=== PATIENT | female | born 1945 | race Hispanic/Latino ===

== ENCOUNTER 2017-10-25 17:11 | Inpatient (IN) | payer OTHER, MEDICARE ==
[~2017-10-25] VITALS: Ht 144.8 cm; Wt 123.5 kg
[~2017-10-25 17:11] MED LIST: ATOR10TA69 PO; LEVO150T11 PO; LEVO5TAB13 PO; PANT40TA25 PO; VALS160T28 PO
[2017-10-25] MEDS ORDERED: IPRATROPIUM/ALBUTEROL SULFATE 3 ML SOLUTION IH ONE (17:25)
[2017-10-25] MEDS ORDERED: NITROGLYCERIN 1GM/1 INCH PACKET TD ONE (17:39)
[2017-10-25 17:40] LABS: BASOPHILS % (AUTO) 0.3 % (0.0-5.0); EOSINOPHILS % (AUTO) 1.6 % (0.0-8.0); HEMATOCRIT 39.6 % (36-48); LYMPHOCYTES % (AUTO) 12.3 % (21.0-51.0); MEAN CORPUSCULAR HEMOGLOBIN 31.8 pg (27.0-33.0); MEAN CORPUSCULAR VOLUME 96.2 fL (79-99); MONOCYTES % (AUTO) 4.8 % (3.0-13.0); PLATELET COUNT (AUTO) 321 K/uL (130-400); RED BLOOD CELL COUNT(AUTO) 4.12 MIL/uL (4.00-5.50); WHITE BLOOD COUNT (AUTO) 13.7 K/uL (4.8-10.8)
[2017-10-25 17:55] LABS: CARBON DIOXIDE 30 mmol/L (21-32); CHLORIDE 102 mmol/L (101-111); CREATININE 1.1 mg/dL (0.5-1.5); GLOMERULAR FILTR. RATE CALC 52 mL/min (>60); GLUCOSE,RANDOM 114 mg/dL (70-105); POTASSIUM 3.8 mmol/L (3.5-5.1); SODIUM SERUM 140 mmol/L (136-145); UREA NITROGEN, BLOOD 18 mg/dL (7-18)
[2017-10-25 18:09] LABS: ALANINE AMINOTRANSFERASE 47 U/L (12-78); ALBUMIN 3.2 g/dL (3.5-5.0); ASPARTATE AMINOTRANSFERASE 28 U/L (10-37); BILIRUBIN,TOTAL 0.3 mg/dL (0.2-1.0); CREATINE KINASE MB < 0.5 ng/mL (0.5-3.6); CREATINE KINASE, TOTAL 28 U/L (21-232); TOTAL PROTEIN, SERUM 7.1 g/dL (6.0-8.3)
[2017-10-25 18:10] LABS: B-TYPE NATRIURETIC PEPTIDE 43 pg/mL (0-100)
[2017-10-25] MEDS ORDERED: MAG HYDROX/AL HYDROX/SIMETH ES 30 ML SUSP UDCUP ONE (18:30)
[2017-10-25] MEDS ORDERED: ACETAMINOPHEN EXTRA STRENGTH 500 MG TABLET ONE (18:38)
[2017-10-25 19:26] LABS: APPEARANCE,URINE Clear (CLEAR); BILIRUBIN,URINE Negative (NEGATIVE); COLOR,URINE Yellow (YELLOW); GLUCOSE, URINE (UA) Negative (NEGATIVE); KETONES,URINE Negative (NEGATIVE); LEUKOCYTE ESTERASE ,URINE Trace (NEGATIVE); NITRATE,URINE Negative (NEGATIVE); OCCULT BLOOD,URINE Negative (NEGATIVE); PROTEIN,URINE Negative (NEGATIVE); UROBILINOGEN,URINE 0.2 mg/dL (0.2-1.0)
[2017-10-25 19:53] LABS: BACTERIA,URINE Rare /HPF (None Seen); RBC,URINE 0-1 /HPF (0-1); SQUAMOUS EPITHELIAL CELL,UR Rare /LPF (0-2)
[2017-10-25 19:54] LABS: TRANSITIONAL EPI CELLS,URINE Rare /LPF (None Seen)
[2017-10-25] MEDS ORDERED: ENOXAPARIN SODIUM 120 MG/0.8ML SQ SCH (21:43)
[2017-10-25] MEDS ORDERED: KETOROLAC TROMETHAMINE 15MG/ML ONE (21:47)
[2017-10-26] MEDS: IPRATROPIUM/ALBUTEROL SULFATE 3 ML SOLUTION IH SCH ×4 (00:17→18:56)
[2017-10-26 05:30] LABS: BASOPHILS % (AUTO) 0.4 % (0.0-5.0); EOSINOPHILS % (AUTO) 0.8 % (0.0-8.0); HEMATOCRIT 36.4 % (36-48); LYMPHOCYTES % (AUTO) 12.1 % (21.0-51.0); MEAN CORPUSCULAR HEMOGLOBIN 32.1 pg (27.0-33.0); MEAN CORPUSCULAR HGB CONC 33.5 g/dL (32.0-36.0); MONOCYTES % (AUTO) 5.3 % (3.0-13.0); NEUTROPHILS % (AUTO) 81.4 % (40.0-77.0); PLATELET COUNT (AUTO) 293 K/uL (130-400); RED BLOOD CELL COUNT(AUTO) 3.79 MIL/uL (4.00-5.50); RED CELL DISTRIBUTION WIDTH 13.9 % (11.0-15.5); WHITE BLOOD COUNT (AUTO) 11.9 K/uL (4.8-10.8)
[2017-10-26 05:36] LABS: CREATININE 0.8 mg/dL (0.5-1.5); POTASSIUM 4.5 mmol/L (3.5-5.1)
[2017-10-26 05:42] LABS: ALBUMIN 2.9 g/dL (3.5-5.0); BILIRUBIN,TOTAL 0.3 mg/dL (0.2-1.0); TOTAL PROTEIN, SERUM 6.6 g/dL (6.0-8.3)
[2017-10-26 05:51] LABS: CREATINE KINASE MB < 0.5 ng/mL (0.5-3.6); CREATINE KINASE, TOTAL 28 U/L (21-232); MYOGLOBIN 20 ng/mL (10-92); TROPONIN I < 0.04 ng/mL (0.00-0.06)
[2017-10-26] MEDS ORDERED: IPRATROPIUM/ALBUTEROL SULFATE 3 ML SOLUTION IH ONE ×2 (05:57→10:56)
[2017-10-26] MEDS: CLOPIDOGREL BISULFATE 75 MG TAB PO SCH (09:00)
[2017-10-26] MEDS ORDERED: ENOXAPARIN SODIUM 60 MG/0.6 ML SQ ONE (09:15)
[2017-10-26] MEDS ORDERED: CLOPIDOGREL BISULFATE 75 MG TAB ONE (09:16)
[2017-10-26 11:30] VITALS: BP 166/74
[2017-10-26] MEDS ORDERED: KETOROLAC TROMETHAMINE 30MG/ML IV PRN (12:00)
[2017-10-26] MEDS ORDERED: ACETAMINOPHEN 325 MG TAB PO PRN (12:00)
[2017-10-26 12:18] LABS: CREATINE KINASE MB < 0.5 ng/mL (0.5-3.6); CREATINE KINASE, TOTAL 27 U/L (21-232); MYOGLOBIN 24 ng/mL (10-92); TROPONIN I < 0.04 ng/mL (0.00-0.06)
[2017-10-26] MEDS ORDERED: ALBU18HF7 IH (12:38)
[2017-10-26] MEDS ORDERED: SODI30SP3 NS (12:38)
[2017-10-26] MEDS ORDERED: FLUT1BLS IH (12:38)
[2017-10-26] MEDS ORDERED: AZITHROMYCIN 500MG+NS 250ML 250 ML IV SCH (14:15)
[2017-10-26] MEDS ORDERED: CEFTRIAXONE 1GM/D5W 50ML 50 ML IV SCH (14:15)
[2017-10-26] MEDS ORDERED: SODIUM CHLORIDE 45 ML SPRY NS PRN (14:15)
[2017-10-26] MEDS ORDERED: CEFTRIAXONE SODIUM 1 GM IVP SCH (15:30)
[2017-10-26 16:00] VITALS: BP 122/77
[2017-10-26 18:23] LABS: CREATINE KINASE MB < 0.5 ng/mL (0.5-3.6); CREATINE KINASE, TOTAL 28 U/L (21-232); MYOGLOBIN 20 ng/mL (10-92); TROPONIN I < 0.04 ng/mL (0.00-0.06)
[2017-10-26] MEDS: BUDESONIDE 0.5 MG/2 ML INH IH SCH (19:10)
[2017-10-26 20:00] VITALS: BP 158/74
[2017-10-26] MEDS: METHYLPREDNISOLONE SOD SUCC 125MG/2ML VIAL IVP SCH (20:46)
[2017-10-26] MEDS: ATORVASTATIN CALCIUM 10 MG TABLET PO SCH (20:46)
[2017-10-26] MEDS: CEFEPIME HCL 1 GM VIAL IVP SCH (20:47)
[2017-10-26] MEDS ORDERED: CEFEPIME 1GM+NS 50ML 50 ML IV SCH (21:00)
[2017-10-26] MEDS ORDERED: FLUTICASONE/VILANTEROL 1 EACH BLST.W.DEV IH SCH (21:00)
[2017-10-27] VITALS: BP 173/75
[2017-10-27] MEDS: IPRATROPIUM/ALBUTEROL SULFATE 3 ML SOLUTION IH SCH ×4 (00:22→19:36)
[2017-10-27 04:00] VITALS: BP 159/79
[2017-10-27 04:27] LABS: BASOPHILS % (AUTO) 0.1 % (0.0-5.0); HEMATOCRIT 40.1 % (36-48); LYMPHOCYTES % (AUTO) 3.9 % (21.0-51.0); MEAN CORPUSCULAR HEMOGLOBIN 32.1 pg (27.0-33.0); MEAN CORPUSCULAR HGB CONC 33.3 g/dL (32.0-36.0); MEAN CORPUSCULAR VOLUME 96.4 fL (79-99); MONOCYTES % (AUTO) 0.5 % (3.0-13.0); NEUTROPHILS % (AUTO) 95.5 % (40.0-77.0); PLATELET COUNT (AUTO) 334 K/uL (130-400); RED BLOOD CELL COUNT(AUTO) 4.16 MIL/uL (4.00-5.50); RED CELL DISTRIBUTION WIDTH 13.9 % (11.0-15.5); WHITE BLOOD COUNT (AUTO) 11.2 K/uL (4.8-10.8)
[2017-10-27 04:35] LABS: POTASSIUM 4.1 mmol/L (3.5-5.1)
[2017-10-27] MEDS: BUDESONIDE 0.5 MG/2 ML INH IH SCH ×2 (06:59→19:46)
[2017-10-27 07:00] VITALS: BP 152/71
[2017-10-27] MEDS: CEFEPIME HCL 1 GM VIAL IVP SCH ×2 (08:53→19:38)
[2017-10-27] MEDS: METHYLPREDNISOLONE SOD SUCC 125MG/2ML VIAL IVP SCH ×2 (08:57→19:38)
[2017-10-27] MEDS: ENOXAPARIN SODIUM 120 MG/0.8ML SQ SCH (08:58)
[2017-10-27] MEDS: CLOPIDOGREL BISULFATE 75 MG TAB PO SCH (09:00)
[2017-10-27] MEDS: PANTOPRAZOLE SODIUM 40 MG TABLET.DR PO SCH (09:00)
[2017-10-27] MEDS: LEVOTHYROXINE 150 MCG TABLET PO SCH (09:00)
[2017-10-27] MEDS: LOSARTAN 100 MG TABLET PO SCH ×2 (09:00→11:24)
[2017-10-27] MEDS ORDERED: REGADENOSON 0.4 MG/5 ML PF SYG IVP SCH (10:15)
[2017-10-27 11:00] VITALS: BP 175/89
[2017-10-27 16:00] VITALS: BP 156/76
[2017-10-27] MEDS: ATORVASTATIN CALCIUM 10 MG TABLET PO SCH (19:38)
[2017-10-27 21:24] VITALS: BP 151/78
[2017-10-28] VITALS (7 sets, daily range): BP systolic 120–162; BP diastolic 60–86
[2017-10-28] MEDS: IPRATROPIUM/ALBUTEROL SULFATE 3 ML SOLUTION IH SCH ×4 (01:06→19:28)
[2017-10-28] MEDS: LEVOTHYROXINE 150 MCG TABLET PO SCH (06:54)
[2017-10-28] MEDS: BUDESONIDE 0.5 MG/2 ML INH IH SCH ×2 (06:58→19:40)
[2017-10-28] MEDS: CEFEPIME HCL 1 GM VIAL IVP SCH ×2 (09:50→20:27)
[2017-10-28] MEDS: CLOPIDOGREL BISULFATE 75 MG TAB PO SCH (09:51)
[2017-10-28] MEDS: LOSARTAN 100 MG TABLET PO SCH (09:51)
[2017-10-28] MEDS: METHYLPREDNISOLONE SOD SUCC 125MG/2ML VIAL IVP SCH ×2 (09:51→20:27)
[2017-10-28] MEDS: PANTOPRAZOLE SODIUM 40 MG TABLET.DR PO SCH (09:51)
[2017-10-28] MEDS: ENOXAPARIN SODIUM 120 MG/0.8ML SQ SCH (09:52)
[2017-10-28] MEDS ORDERED: ONDANSETRON HCL 4 MG/2 ML VIAL IVP PRN (11:00)
[2017-10-28] MEDS ORDERED: LACTULOSE 20 GM/30 ML UDCUP PO PRN (11:00)
[2017-10-28] MEDS ORDERED: DOCUSATE SODIUM 100 MG CAP PO PRN (11:00)
[2017-10-28] MEDS: ATORVASTATIN CALCIUM 10 MG TABLET PO SCH (20:28)
[2017-10-29] MEDS: IPRATROPIUM/ALBUTEROL SULFATE 3 ML SOLUTION IH SCH ×2 (00:24→07:33)
[2017-10-29 04:00] VITALS: BP 138/72
[2017-10-29 06:53] LABS: HEMATOCRIT 38.8 % (36-48); MEAN CORPUSCULAR HEMOGLOBIN 31.6 pg (27.0-33.0); MEAN CORPUSCULAR HGB CONC 33.2 g/dL (32.0-36.0); MEAN CORPUSCULAR VOLUME 95.2 fL (79-99); PLATELET COUNT (AUTO) 310 K/uL (130-400); RED BLOOD CELL COUNT(AUTO) 4.08 MIL/uL (4.00-5.50); RED CELL DISTRIBUTION WIDTH 13.8 % (11.0-15.5); WHITE BLOOD COUNT (AUTO) 15.8 K/uL (4.8-10.8)
[2017-10-29 07:05] LABS: CREATININE 0.8 mg/dL (0.5-1.5); POTASSIUM 4.2 mmol/L (3.5-5.1)
[2017-10-29 07:30] VITALS: BP 140/69
[2017-10-29] MEDS: BUDESONIDE 0.5 MG/2 ML INH IH SCH (07:34)
[2017-10-29] MEDS: METHYLPREDNISOLONE SOD SUCC 125MG/2ML VIAL IVP SCH (09:00)
[2017-10-29] MEDS: CEFEPIME HCL 1 GM VIAL IVP SCH (09:00)
[2017-10-29] MEDS: ENOXAPARIN SODIUM 120 MG/0.8ML SQ SCH (09:00)
[2017-10-29] MEDS: PANTOPRAZOLE SODIUM 40 MG TABLET.DR PO SCH (09:07)
[2017-10-29] MEDS: CLOPIDOGREL BISULFATE 75 MG TAB PO SCH (09:07)
[2017-10-29] MEDS: LEVOTHYROXINE 150 MCG TABLET PO SCH (09:07)
[2017-10-29] MEDS: LOSARTAN 100 MG TABLET PO SCH (09:07)
== END 2017-10-29 09:30 | disposition home or self-care (01) | DRG 191 ==
LOC: EDH 17:11 → EDHIP 21:10 → 3DH 10-26 11:15
PROVIDERS: ADMIT Internal Medicine; ATTEND Internal Medicine
DX: J44.1 Chronic obstructive pulmonary disease with (acute) exacerbation (principal); Z68.43 Body mass index [BMI] 50.0-59.9, adult; E66.01 Morbid (severe) obesity due to excess calories; E03.9 Hypothyroidism, unspecified; I10 Essential (primary) hypertension; K21.9 Gastro-esophageal reflux disease without esophagitis; N95.1 Menopausal and female climacteric states; Z90.710 Acquired absence of both cervix and uterus; Z90.49 Acquired absence of other specified parts of digestive tract; Z88.8 Allergy status to other drugs, medicaments and biological substances
CPT/HCPCS: 36415; 71045; 78452; 80048; 80053; 81001; 82550; 82553; 83690; 83874; 83880; 84484; 85025; 85027; 87804; 87880; 93005; 93017; 93306; 94640; 94664; 96374; A4218; A9500; J0456; J0692; J0696; J1650; J1885; J2785; J2930

== ENCOUNTER 2017-12-22 14:58 | Emergency (ER) | payer OTHER, MEDICARE ==
[~2017-12-22 14:58] MED LIST changes: +ALBU18HF7 IH; +FLUT1BLS IH; -LEVO5TAB13 PO; +SODI30SP3 NS
[2017-12-22 15:36] LABS: BASOPHILS % (AUTO) 0.8 % (0.0-5.0); EOSINOPHILS % (AUTO) 2.8 % (0.0-8.0); HEMATOCRIT 39.2 % (36-48); LYMPHOCYTES % (AUTO) 14.8 % (21.0-51.0); MEAN CORPUSCULAR HEMOGLOBIN 32.8 pg (27.0-33.0); MEAN CORPUSCULAR HGB CONC 34.3 g/dL (32.0-36.0); MEAN CORPUSCULAR VOLUME 95.7 fL (79-99); MONOCYTES % (AUTO) 6.5 % (3.0-13.0); NEUTROPHILS % (AUTO) 75.1 % (40.0-77.0); PLATELET COUNT (AUTO) 348 K/uL (130-400); RED CELL DISTRIBUTION WIDTH 14.3 % (11.0-15.5); WHITE BLOOD COUNT (AUTO) 10.5 K/uL (4.8-10.8)
[2017-12-22 15:38] LABS: BILIRUBIN,URINE Negative (NEGATIVE); COLOR,URINE Yellow (YELLOW); GLUCOSE, URINE (UA) Negative (NEGATIVE); KETONES,URINE Negative (NEGATIVE); LEUKOCYTE ESTERASE ,URINE Small (NEGATIVE); NITRATE,URINE Negative (NEGATIVE); OCCULT BLOOD,URINE Negative (NEGATIVE); PROTEIN,URINE Negative (NEGATIVE); UROBILINOGEN,URINE 0.2 mg/dL (0.2-1.0)
[2017-12-22 15:40] LABS: APPEARANCE,URINE CLEAR (CLEAR)
[2017-12-22 15:47] LABS: CREATININE 0.9 mg/dL (0.5-1.5); POTASSIUM 4.7 mmol/L (3.5-5.1)
[2017-12-22 15:51] LABS: ALBUMIN 3.1 g/dL (3.5-5.0); BILIRUBIN,TOTAL 0.5 mg/dL (0.2-1.0); TOTAL PROTEIN, SERUM 6.6 g/dL (6.0-8.3)
[2017-12-22] MEDS ORDERED: IOPAMIDOL-370 75 ML VIAL IV ONE (16:05)
[2017-12-22 16:12] LABS: BACTERIA,URINE Rare /HPF (None Seen); RBC,URINE None Seen /HPF (0-1); RENAL EPITHELIAL CELLS,URINE Rare /LPF (None Seen); SQUAMOUS EPITHELIAL CELL,UR 0-2 /LPF (0-2); TRANSITIONAL EPI CELLS,URINE Few /LPF (None Seen); WBC,URINE 0-1 /HPF (0-1)
[2017-12-22] MEDS ORDERED: HYOSCYAMINE SULFATE 0.125 MG TAB.SUBL SL ONE (18:30)
== END 2017-12-22 18:51 | disposition home or self-care (01) ==
LOC: EDH 14:58
DX: R10.32 Left lower quadrant pain (principal); K21.9 Gastro-esophageal reflux disease without esophagitis; I10 Essential (primary) hypertension; E07.9 Disorder of thyroid, unspecified; Z88.5 Allergy status to narcotic agent; Z88.8 Allergy status to other drugs, medicaments and biological substances; Z90.710 Acquired absence of both cervix and uterus; Z90.49 Acquired absence of other specified parts of digestive tract; Z98.890 Other specified postprocedural states
CPT/HCPCS: 36415; 74178; 80053; 81001; 85025; 99285; Q9967

== ENCOUNTER 2018-03-15 15:15 | Observation (INO) | payer OTHER ==
[~2018-03-15] VITALS: Ht 152.4 cm; Wt 126.6 kg
[~2018-03-15 15:15] MED LIST changes: -VALS160T28 PO; +VALS160T29 PO
[2018-03-15] MEDS ORDERED: DIATR MEGLU/DIATRIZOATE SODIUM 30 ML BOTTLE ONE ×2 (15:46→16:29)
[2018-03-15] MEDS ORDERED: DIPHENHYDRAMINE HCL 25 MG CAPSULE PO PRN (16:00)
[2018-03-15] MEDS ORDERED: ZOLPIDEM TARTRATE 5 MG TAB PO PRN (16:00)
[2018-03-15] MEDS ORDERED: ACETAMINOPHEN 325 MG TAB PO PRN (16:00)
[2018-03-15 16:03] LABS: BASOPHILS % (AUTO) 0.5 % (0.0-5.0); EOSINOPHILS % (AUTO) 2.2 % (0.0-8.0); HEMATOCRIT 38.3 % (36-48); LYMPHOCYTES % (AUTO) 12.8 % (21.0-51.0); MEAN CORPUSCULAR HEMOGLOBIN 33.2 pg (27.0-33.0); MEAN CORPUSCULAR HGB CONC 34.9 g/dL (32.0-36.0); MONOCYTES % (AUTO) 5.7 % (3.0-13.0); NEUTROPHILS % (AUTO) 78.8 % (40.0-77.0); PLATELET COUNT (AUTO) 351 K/uL (130-400); RED BLOOD CELL COUNT(AUTO) 4.03 MIL/uL (4.00-5.50); RED CELL DISTRIBUTION WIDTH 13.8 % (11.0-15.5); WHITE BLOOD COUNT (AUTO) 12.2 K/uL (4.8-10.8)
[2018-03-15 16:10] LABS: CREATININE 0.8 mg/dL (0.5-1.5); POTASSIUM 3.8 mmol/L (3.5-5.1)
[2018-03-15 16:15] LABS: BILIRUBIN,DIRECT 0.1 mg/dL (0.0-0.3); BILIRUBIN,TOTAL 0.3 mg/dL (0.2-1.0); TOTAL PROTEIN, SERUM 6.8 g/dL (6.0-8.3)
[2018-03-15 17:11] LABS: APPEARANCE,URINE Cloudy (CLEAR); BILIRUBIN,URINE Negative (NEGATIVE); COLOR,URINE Yellow (YELLOW); GLUCOSE, URINE (UA) Negative (NEGATIVE); KETONES,URINE Negative (NEGATIVE); LEUKOCYTE ESTERASE ,URINE Moderate (NEGATIVE); NITRATE,URINE Negative (NEGATIVE); OCCULT BLOOD,URINE Negative (NEGATIVE); PROTEIN,URINE Negative (NEGATIVE); UROBILINOGEN,URINE 0.2 mg/dL (0.2-1.0)
[2018-03-15 17:23] LABS: RBC,URINE 0-1 /HPF (0-1)
[2018-03-15 17:24] LABS: BACTERIA,URINE Few /HPF (None Seen); SQUAMOUS EPITHELIAL CELL,UR Few /HPF (0-2)
[2018-03-15] MEDS ORDERED: IOPAMIDOL-370 75 ML VIAL IV ONE (18:26)
[2018-03-15 19:15] VITALS: BP 159/70
[2018-03-15] MEDS ORDERED: FAMO20TA8 PO (20:41)
[2018-03-15] MEDS ORDERED: VALS160T29 PO (20:41)
[2018-03-15] MEDS ORDERED: LEVO125 PO (20:41)
[2018-03-15] MEDS ORDERED: ASPI-555 PO (20:41)
[2018-03-15] MEDS ORDERED: IBUP-2077 PO (20:41)
[2018-03-15] MEDS ORDERED: DIPH25TA20 PO (20:41)
[2018-03-15] MEDS: KETOROLAC TROMETHAMINE 15MG/ML IV PRN (20:47)
[2018-03-15] MEDS: ENOXAPARIN SODIUM 30 MG/0.3 ML SQ SCH (20:47)
[2018-03-15 23:15] VITALS: BP 141/68
[2018-03-16 03:30] VITALS: BP 145/61
[2018-03-16 05:45] LABS: BASOPHILS % (AUTO) 0.5 % (0.0-5.0); EOSINOPHILS % (AUTO) 2.3 % (0.0-8.0); HEMATOCRIT 37.1 % (36-48); LYMPHOCYTES % (AUTO) 16.7 % (21.0-51.0); MEAN CORPUSCULAR HEMOGLOBIN 32.7 pg (27.0-33.0); MEAN CORPUSCULAR HGB CONC 34.3 g/dL (32.0-36.0); MEAN CORPUSCULAR VOLUME 95.4 fL (79-99); MONOCYTES % (AUTO) 5.8 % (3.0-13.0); NEUTROPHILS % (AUTO) 74.7 % (40.0-77.0); PLATELET COUNT (AUTO) 337 K/uL (130-400); RED BLOOD CELL COUNT(AUTO) 3.89 MIL/uL (4.00-5.50); RED CELL DISTRIBUTION WIDTH 13.6 % (11.0-15.5); WHITE BLOOD COUNT (AUTO) 9.8 K/uL (4.8-10.8)
[2018-03-16 06:02] LABS: ALBUMIN 2.7 g/dL (3.5-5.0); BILIRUBIN,DIRECT 0.1 mg/dL (0.0-0.3); BILIRUBIN,TOTAL 0.4 mg/dL (0.2-1.0); CREATININE 0.7 mg/dL (0.5-1.5); POTASSIUM 3.6 mmol/L (3.5-5.1); TOTAL PROTEIN, SERUM 6.2 g/dL (6.0-8.3)
[2018-03-16] MEDS: KETOROLAC TROMETHAMINE 15MG/ML IV PRN (07:11)
[2018-03-16 07:48] VITALS: BP 148/71
[2018-03-16] MEDS: ENOXAPARIN SODIUM 30 MG/0.3 ML SQ SCH (08:43)
[2018-03-16 12:54] VITALS: BP 128/63
== END 2018-03-16 13:25 | disposition home or self-care (01) ==
LOC: EDH 15:15 → INTOOBSV 15:16 → MERGE 15:16 → EDHIP 15:16 → 4AH 18:37
PROVIDERS: ADMIT Internal Medicine; ATTEND Internal Medicine
DX: N39.0 Urinary tract infection, site not specified (principal); J44.9 Chronic obstructive pulmonary disease, unspecified; E78.5 Hyperlipidemia, unspecified; I10 Essential (primary) hypertension; E03.9 Hypothyroidism, unspecified; K31.84 Gastroparesis; K40.90 Unilateral inguinal hernia, without obstruction or gangrene, not specified as recurrent; Z90.49 Acquired absence of other specified parts of digestive tract; Z96.652 Presence of left artificial knee joint
CPT/HCPCS: 36415 ×2; 74177; 80048 ×2; 80076 ×2; 81001; 85025 ×2; 96372 ×2; 96374; 96376; 99285; A4510; G0378 ×22; J1650 ×2; J1885 ×3; Q9963 ×2; Q9967

== ENCOUNTER 2018-11-27 04:49 | Emergency (ER) | payer OTHER ==
[~2018-11-27 04:49] MED LIST changes: +ASPI-555 PO; +DIPH25TA20 PO; +FAMO20TA8 PO; +IBUP-2077 PO; +LEVO125 PO
[2018-11-27] MEDS ORDERED: ASPIRIN 81MG TAB.CHEW ONE (04:54)
[2018-11-27] MEDS ORDERED: MAG HYDROX/AL HYDROX/SIMETH ES 30 ML SUSP UDCUP ONE (05:15)
[2018-11-27] MEDS ORDERED: LIDOCAINE HCL 2% VISCOUS 15 ML UDCUP ONE (05:15)
[2018-11-27] MEDS ORDERED: PROCHLORPERAZINE EDISYLATE 10 MG/2 ML VIAL ONE (05:16)
[2018-11-27 05:31] LABS: BASOPHILS % (AUTO) 0.7 % (0.0-5.0); EOSINOPHILS % (AUTO) 1.7 % (0.0-8.0); HEMATOCRIT 44.3 % (36-48); LYMPHOCYTES % (AUTO) 17.7 % (21.0-51.0); MEAN CORPUSCULAR HEMOGLOBIN 31.6 pg (27.0-33.0); MEAN CORPUSCULAR HGB CONC 32.9 g/dL (32.0-36.0); MEAN CORPUSCULAR VOLUME 95.9 fL (79-99); MONOCYTES % (AUTO) 6.2 % (3.0-13.0); NEUTROPHILS % (AUTO) 73.7 % (40.0-77.0); NUCLEATED RED BLOOD CELLS 0.1 % (0.0-0.19); PLATELET COUNT (AUTO) 339 K/uL (130-400); RED BLOOD CELL COUNT(AUTO) 4.62 MIL/uL (4.00-5.50); RED CELL DISTRIBUTION WIDTH 14.1 % (11.0-15.5); WHITE BLOOD COUNT (AUTO) 9.5 K/uL (4.8-10.8)
[2018-11-27 05:41] LABS: CREATININE 0.7 mg/dL (0.5-1.5); POTASSIUM 4.2 mmol/L (3.5-5.1)
[2018-11-27 05:46] LABS: ALBUMIN 3.2 g/dL (3.5-5.0); BILIRUBIN,TOTAL 0.4 mg/dL (0.2-1.0); TOTAL PROTEIN, SERUM 7.2 g/dL (6.0-8.3)
[2018-11-27 06:02] LABS: B-TYPE NATRIURETIC PEPTIDE 23 pg/mL (0-100)
[2018-11-27] MEDS ORDERED: DiphenhydrAMINE HCL 50 MG/ML VIAL ONE (06:32)
== END 2018-11-27 06:48 | disposition home or self-care (01) ==
LOC: EDH 04:49
DX: R07.9 Chest pain, unspecified (principal); K21.9 Gastro-esophageal reflux disease without esophagitis; E78.5 Hyperlipidemia, unspecified; I10 Essential (primary) hypertension; M81.0 Age-related osteoporosis without current pathological fracture; E07.9 Disorder of thyroid, unspecified; Z90.710 Acquired absence of both cervix and uterus; Z90.79 Acquired absence of other genital organ(s); Z88.5 Allergy status to narcotic agent; Z88.1 Allergy status to other antibiotic agents; Z88.8 Allergy status to other drugs, medicaments and biological substances
CPT/HCPCS: 36415; 71045; 80053; 82550; 83880; 84484 ×2; 85025; 93005; 96372; 96374; 99284; J0780; J1200

== ENCOUNTER 2019-05-01 15:58 | Emergency (ER) | payer OTHER, MEDICARE ==
[2019-05-01 17:52] LABS: APPEARANCE,URINE Clear (CLEAR); BILIRUBIN,URINE Negative (NEGATIVE); COLOR,URINE Yellow (YELLOW); GLUCOSE, URINE (UA) Negative (NEGATIVE); KETONES,URINE Negative (NEGATIVE); LEUKOCYTE ESTERASE ,URINE Negative (NEGATIVE); NITRATE,URINE Negative (NEGATIVE); OCCULT BLOOD,URINE Negative (NEGATIVE); PH,URINE 7.5 (5.0-8.0); PROTEIN,URINE Negative (NEGATIVE); UROBILINOGEN,URINE 0.2 mg/dL (0.2-1.0)
[2019-05-01 17:53] LABS: BASOPHILS % (AUTO) 0.7 % (0.0-5.0); EOSINOPHILS % (AUTO) 1.7 % (0.0-8.0); HEMATOCRIT 42.9 % (36-48); LYMPHOCYTES % (AUTO) 13.4 % (21.0-51.0); MEAN CORPUSCULAR HGB CONC 33.8 g/dL (32.0-36.0); MEAN CORPUSCULAR VOLUME 97.7 fL (79-99); MONOCYTES % (AUTO) 5.4 % (3.0-13.0); NEUTROPHILS % (AUTO) 78.8 % (40.0-77.0); NUCLEATED RED BLOOD CELLS 0.1 % (0.0-0.19); PLATELET COUNT (AUTO) 288 K/uL (130-400); WHITE BLOOD COUNT (AUTO) 10.3 K/uL (4.8-10.8)
[2019-05-01 18:04] LABS: CREATININE 0.9 mg/dL (0.5-1.5); POTASSIUM 3.7 mmol/L (3.5-5.1)
[2019-05-01 18:16] LABS: BILIRUBIN,TOTAL 0.3 mg/dL (0.2-1.0)
[2019-05-01] MEDS ORDERED: IOHEXOL-350 75 ML VIAL IV ONE (18:16)
[2019-05-01 18:17] LABS: ALBUMIN 3.3 g/dL (3.5-5.0); TOTAL PROTEIN, SERUM 7.3 g/dL (6.0-8.3)
== END 2019-05-01 20:41 | disposition home or self-care (01) ==
LOC: EDH 15:58
DX: B34.9 Viral infection, unspecified (principal); I10 Essential (primary) hypertension; K21.9 Gastro-esophageal reflux disease without esophagitis; E78.5 Hyperlipidemia, unspecified; M81.0 Age-related osteoporosis without current pathological fracture; E07.9 Disorder of thyroid, unspecified; Z90.710 Acquired absence of both cervix and uterus; Z90.49 Acquired absence of other specified parts of digestive tract; Z88.1 Allergy status to other antibiotic agents; Z88.5 Allergy status to narcotic agent; Z88.8 Allergy status to other drugs, medicaments and biological substances
CPT/HCPCS: 36415; 71045; 74177; 80053; 81003; 83605; 83880; 84484; 85025; 87040 ×2; 87804 ×2; 93005; 99285; Q9967

== ENCOUNTER 2019-07-16 05:36 | Day surgery (SDC) | payer OTHER, MEDICARE ==
[~2019-07-16] VITALS: Ht 144.8 cm; Wt 113.4 kg
[~2019-07-16 05:36] MED LIST changes: -ALBU18HF7 IH; -ASPI-555 PO; +CEPH500C2 PO; -DIPH25TA20 PO; -FLUT1BLS IH; -IBUP-2077 PO; -LEVO125 PO; -LEVO150T11 PO; +LEVO200T10 PO; -PANT40TA25 PO; -SODI30SP3 NS; +TELM80TA10 PO; -VALS160T29 PO
[2019-07-16] MEDS ORDERED: SODIUM CHLORIDE 0.9% 1000ML 1,000 ML IV ONE (05:40)
[2019-07-16] MEDS ORDERED: PROPOFOL 10 MG/ML 20ML VIAL IV ONE (06:14)
[2019-07-16 06:15] VITALS: BP 128/59
[2019-07-16] MEDS ORDERED: NEBULIZER (06:25)
[2019-07-16] MEDS ORDERED: INHALER (06:25)
[2019-07-16 07:21] VITALS: BP 98/48
[2019-07-16 07:26] VITALS: BP 111/62
[2019-07-16 07:33] VITALS: BP 138/73
== END 2019-07-16 07:47 | disposition home or self-care (01) ==
LOC: DAH 05:36 → ENDO 05:36
PROVIDERS: ATTEND Internal Medicine Gastroenterology
DX: K59.00 Constipation, unspecified (principal); D12.2 Benign neoplasm of ascending colon; D12.3 Benign neoplasm of transverse colon; K63.5 Polyp of colon; K29.50 Unspecified chronic gastritis without bleeding; K57.30 Diverticulosis of large intestine without perforation or abscess without bleeding; K64.0 First degree hemorrhoids; K44.9 Diaphragmatic hernia without obstruction or gangrene; K22.8 Other specified diseases of esophagus; I10 Essential (primary) hypertension; K21.9 Gastro-esophageal reflux disease without esophagitis; E66.01 Morbid (severe) obesity due to excess calories; E03.9 Hypothyroidism, unspecified; E78.2 Mixed hyperlipidemia; Z86.010 Personal history of colon polyps; Z79.899 Other long term (current) drug therapy; Z90.710 Acquired absence of both cervix and uterus; Z98.890 Other specified postprocedural states; Z90.89 Acquired absence of other organs; Z88.1 Allergy status to other antibiotic agents; Z88.5 Allergy status to narcotic agent
CPT/HCPCS: 43239; 45380; 88305; A4215; A4221; A4222; A4223; A4606; A4620; A4663; J2704; J7030

== ENCOUNTER 2020-01-09 10:50 | Inpatient (IN) | payer OTHER, MEDICARE ==
[~2020-01-09] VITALS: Ht 160 cm; Wt 108.0 kg
[~2020-01-09 10:50] MED LIST changes: +CEFU500T67 PO; -CEPH500C2 PO; +ESTR-3 PO; +INHALER; +LEVO25TA54 PO; +LINA290C PO; +NEBULIZER; +OMEP40CA13 PO
[2020-01-09] MEDS ORDERED: ACETAMINOPHEN 325 MG TAB PO PRN (11:30)
[2020-01-09] MEDS ORDERED: LACTULOSE 20 GM/30 ML UDCUP PO PRN (11:30)
[2020-01-09] MEDS ORDERED: ONDANSETRON HCL 4 MG/2 ML VIAL IVP PRN (11:30)
[2020-01-09] MEDS ORDERED: ZOLPIDEM TARTRATE 5 MG TAB PO PRN (11:30)
[2020-01-09 11:35] VITALS: BP 150/77
[2020-01-09 12:40] LABS: BASOPHILS % (AUTO) 0.2 % (0.0-5.0); EOSINOPHILS % (AUTO) 0.5 % (0.0-8.0); HEMATOCRIT 42.8 % (36-48); LYMPHOCYTES % (AUTO) 9.4 % (21.0-51.0); MEAN CORPUSCULAR HEMOGLOBIN 31.8 pg (27.0-33.0); MEAN CORPUSCULAR HGB CONC 32.2 g/dL (32.0-36.0); MEAN CORPUSCULAR VOLUME 98.6 fL (79-99); MONOCYTES % (AUTO) 5.4 % (3.0-13.0); NEUTROPHILS % (AUTO) 84.2 % (40.0-77.0); PLATELET COUNT (AUTO) 358 K/uL (130-400); RED BLOOD CELL COUNT(AUTO) 4.34 MIL/uL (4.00-5.50); RED CELL DISTRIBUTION WIDTH 12.8 % (11.0-15.5); WHITE BLOOD COUNT (AUTO) 14.3 K/uL (4.8-10.8)
[2020-01-09] MEDS: 1/2 NORMAL SALINE 1,000 ML IV SCH (12:51)
[2020-01-09 12:54] LABS: ALBUMIN 3.3 g/dL (3.5-5.0); BILIRUBIN,DIRECT 0.1 mg/dL (0.0-0.3)
[2020-01-09 13:17] LABS: APPEARANCE,URINE Clear (CLEAR); BILIRUBIN,URINE Negative (NEGATIVE); COLOR,URINE Yellow (YELLOW); GLUCOSE, URINE (UA) Negative (NEGATIVE); KETONES,URINE Negative (NEGATIVE); LEUKOCYTE ESTERASE ,URINE Negative (NEGATIVE); NITRATE,URINE Negative (NEGATIVE); OCCULT BLOOD,URINE Negative (NEGATIVE); PROTEIN,URINE Negative (NEGATIVE); UROBILINOGEN,URINE 0.2 mg/dL (0.2-1.0)
[2020-01-09] MEDS ORDERED: TRAM50TA4 PO (13:18)
[2020-01-09] MEDS ORDERED: CITA10TA7 PO (13:18)
[2020-01-09] MEDS ORDERED: HYDR-4060 PO (13:18)
[2020-01-09 13:22] LABS: BILIRUBIN,TOTAL 0.4 mg/dL (0.2-1.0); TOTAL PROTEIN, SERUM 7.9 g/dL (6.0-8.3)
[2020-01-09 13:30] LABS: B-TYPE NATRIURETIC PEPTIDE 126 pg/mL (0-100)
[2020-01-09] MEDS: CEFEPIME HCL 1 GM VIAL IVP SCH ×2 (14:52→20:27)
[2020-01-09] MEDS: PANTOPRAZOLE SODIUM 40 MG TABLET.DR PO SCH (14:52)
[2020-01-09 16:00] VITALS: BP 161/72
[2020-01-09 16:51] LABS: INR 0.88 (0.85-1.15); PARTIAL THROMBOPLASTIN TIME 19.8 SEC (26.3-35.5); PROTHROMBIN TIME 9.6 SEC (9.6-11.6)
[2020-01-09 16:59] LABS: CREATININE 0.7 mg/dL (0.5-1.5); POTASSIUM 3.8 mmol/L (3.5-5.1)
--- NOTE | 2020-01-09 19:19 | NUR ---
PICC LINE PLACEMENT IN PROGRESS AT THIS TIME Addendum: 01/09/20 at 1920 by NANCIE HIGH RN RN Amended: Links added.
[2020-01-09] MEDS: CLOTRIMAZOLE/BETAMETHASONE DIP 45 GM CREAM.GM. TP SCH (20:27)
[2020-01-09] MEDS: ATORVASTATIN CALCIUM 10 MG TABLET PO SCH (20:27)
[2020-01-09 21:03] VITALS: BP 153/58
[2020-01-10] VITALS (8 sets, daily range): BP systolic 141–164; BP diastolic 57–100
[2020-01-10] MEDS: 1/2 NORMAL SALINE 1,000 ML IV SCH ×2 (01:11→13:50)
[2020-01-10 05:07] LABS: BASOPHILS % (AUTO) 0.2 % (0.0-5.0); EOSINOPHILS % (AUTO) 0.7 % (0.0-8.0); HEMATOCRIT 38.9 % (36-48); LYMPHOCYTES % (AUTO) 10.9 % (21.0-51.0); MEAN CORPUSCULAR HEMOGLOBIN 31.7 pg (27.0-33.0); MEAN CORPUSCULAR HGB CONC 32.1 g/dL (32.0-36.0); MEAN CORPUSCULAR VOLUME 98.7 fL (79-99); MONOCYTES % (AUTO) 5.7 % (3.0-13.0); NEUTROPHILS % (AUTO) 82.1 % (40.0-77.0); PLATELET COUNT (AUTO) 309 K/uL (130-400); RED BLOOD CELL COUNT(AUTO) 3.94 MIL/uL (4.00-5.50); RED CELL DISTRIBUTION WIDTH 12.9 % (11.0-15.5)
[2020-01-10] MEDS: CEFEPIME HCL 1 GM VIAL IVP SCH ×3 (05:21→21:04)
[2020-01-10] MEDS: LEVOTHYROXINE 100 MCG TABLET PO SCH (05:33)
[2020-01-10 05:43] LABS: ALBUMIN 2.8 g/dL (3.5-5.0); BILIRUBIN,DIRECT 0.1 mg/dL (0.0-0.3); BILIRUBIN,TOTAL 0.4 mg/dL (0.2-1.0); CREATININE 0.7 mg/dL (0.5-1.5); TOTAL PROTEIN, SERUM 6.9 g/dL (6.0-8.3)
[2020-01-10] MEDS: PANTOPRAZOLE SODIUM 40 MG TABLET.DR PO SCH (08:39)
[2020-01-10] MEDS: PANTOPRAZOLE 40 MG/VIAL IVP SCH (08:39)
[2020-01-10] MEDS: LEVOTHYROXINE 25 MCG TABLET PO SCH (08:39)
[2020-01-10] MEDS: CITALOPRAM 20 MG TABLET PO SCH (08:39)
[2020-01-10] MEDS: CLOTRIMAZOLE/BETAMETHASONE DIP 45 GM CREAM.GM. TP SCH ×2 (08:40→21:04)
[2020-01-10] MEDS: M PROGEST ACET PO SCH (09:00)
[2020-01-10] MEDS: ESTROGEN CON PO SCH (09:00)
[2020-01-10] MEDS: Telmisartan 80 MG PO SCH (09:00)
[2020-01-10] MEDS: (Linaclotide (Linzess) 290 MCG) PO SCH (09:00)
[2020-01-10] MEDS ORDERED: NON-FORMULARY MEDICATION 1 EACH (Omeprazole 40 MG) PO SCH (09:00)
[2020-01-10] MEDS: CLONIDINE HCL 0.1 MG TABLET PO PRN (16:52)
[2020-01-10] MEDS: TRAMADOL HCL 50 MG TABLET PO PRN (16:57)
[2020-01-10] MEDS: DIPHENHYDRAMINE HCL 25 MG CAPSULE PO PRN (18:10)
--- NOTE | 2020-01-10 18:29 | NUR ---
D/C PLAN CM obtained information from medical record. Patient lives with spouse. Has provider services to assist with ADL's about 18 hours per week. Has cane, walker, shower chair, BSC,and O2 concentrator/portable. Spouse assists with transportation. Plan to home for now. Possible need for short term/snf rehab. CM to f/u. Addendum: 01/10/20 at 1832 by ASHLEE WILSON CM Amended: Links added.
[2020-01-10] MEDS: ATORVASTATIN CALCIUM 10 MG TABLET PO SCH (21:04)
[2020-01-11] MEDS: HYDROCODONE/ACETAMINOPHEN 5/325 MG TAB PO PRN ×3 (02:23→20:59)
[2020-01-11 03:12] VITALS: BP 137/72
[2020-01-11 05:39] LABS: BASOPHILS % (AUTO) 0.2 % (0.0-5.0); EOSINOPHILS % (AUTO) 0.4 % (0.0-8.0); HEMATOCRIT 37.7 % (36-48); LYMPHOCYTES % (AUTO) 11.2 % (21.0-51.0); MEAN CORPUSCULAR HEMOGLOBIN 32.6 pg (27.0-33.0); MEAN CORPUSCULAR HGB CONC 33.4 g/dL (32.0-36.0); MEAN CORPUSCULAR VOLUME 97.4 fL (79-99); MONOCYTES % (AUTO) 6.1 % (3.0-13.0); NEUTROPHILS % (AUTO) 81.8 % (40.0-77.0); PLATELET COUNT (AUTO) 310 K/uL (130-400); RED BLOOD CELL COUNT(AUTO) 3.87 MIL/uL (4.00-5.50); RED CELL DISTRIBUTION WIDTH 12.7 % (11.0-15.5); WHITE BLOOD COUNT (AUTO) 11.5 K/uL (4.8-10.8)
[2020-01-11 06:12] LABS: ALANINE AMINOTRANSFERASE 15 U/L (12-78); ALBUMIN 2.6 g/dL (3.5-5.0); ASPARTATE AMINOTRANSFERASE 14 U/L (10-37); BILIRUBIN,TOTAL 0.5 mg/dL (0.2-1.0); CARBON DIOXIDE 28 mmol/L (21-32); CHLORIDE 102 mmol/L (101-111); CREATININE 0.7 mg/dL (0.5-1.5); GLOMERULAR FILTR. RATE CALC 86 mL/min (>60); GLUCOSE,RANDOM 97 mg/dL (70-105); SODIUM SERUM 136 mmol/L (136-145); TOTAL PROTEIN, SERUM 6.5 g/dL (6.0-8.3); UREA NITROGEN, BLOOD 11 mg/dL (7-18)
[2020-01-11 06:28] LABS: LIPASE < 50 U/L (114-286)
[2020-01-11] MEDS: LEVOTHYROXINE 25 MCG TABLET PO SCH (06:46)
[2020-01-11] MEDS: CEFEPIME HCL 1 GM VIAL IVP SCH ×3 (06:46→20:59)
[2020-01-11] MEDS: PANTOPRAZOLE SODIUM 40 MG TABLET.DR PO SCH (06:46)
[2020-01-11] MEDS: LEVOTHYROXINE 100 MCG TABLET PO SCH (06:46)
[2020-01-11 07:59] VITALS: BP 152/74
[2020-01-11] MEDS: Telmisartan 80 MG PO SCH (09:00)
[2020-01-11] MEDS: (Linaclotide (Linzess) 290 MCG) PO SCH (09:00)
[2020-01-11] MEDS: ESTROGEN CON PO SCH (09:00)
[2020-01-11] MEDS: M PROGEST ACET PO SCH (09:00)
[2020-01-11] MEDS: PANTOPRAZOLE 40 MG/VIAL IVP SCH (10:01)
[2020-01-11] MEDS: CITALOPRAM 20 MG TABLET PO SCH (10:01)
[2020-01-11] MEDS: TRAMADOL HCL 50 MG TABLET PO PRN (10:02)
[2020-01-11] MEDS: CLOTRIMAZOLE/BETAMETHASONE DIP 45 GM CREAM.GM. TP SCH ×2 (10:07→21:00)
[2020-01-11 11:00] VITALS: BP 114/69
[2020-01-11] MEDS: CLONIDINE HCL 0.1 MG TABLET PO PRN (14:19)
[2020-01-11 16:00] VITALS: BP 142/80
[2020-01-11] MEDS: 1/2 NORMAL SALINE 1,000 ML IV SCH (18:30)
[2020-01-11 20:28] VITALS: BP 130/79
[2020-01-11] MEDS: ATORVASTATIN CALCIUM 10 MG TABLET PO SCH (21:00)
[2020-01-12] VITALS (8 sets, daily range): BP systolic 129–165; BP diastolic 66–110
[2020-01-12] MEDS: CEFEPIME HCL 1 GM VIAL IVP SCH ×3 (05:46→21:27)
[2020-01-12] MEDS: LEVOTHYROXINE 100 MCG TABLET PO SCH (05:47)
[2020-01-12] MEDS: LEVOTHYROXINE 25 MCG TABLET PO SCH (05:47)
[2020-01-12] MEDS: PANTOPRAZOLE SODIUM 40 MG TABLET.DR PO SCH ×2 (05:49→08:22)
[2020-01-12] MEDS: 1/2 NORMAL SALINE 1,000 ML IV SCH ×2 (06:10→16:49)
[2020-01-12] MEDS: PANTOPRAZOLE 40 MG/VIAL IVP SCH (08:22)
[2020-01-12] MEDS: CITALOPRAM 20 MG TABLET PO SCH (08:22)
[2020-01-12] MEDS: CLOTRIMAZOLE/BETAMETHASONE DIP 45 GM CREAM.GM. TP SCH ×2 (08:22→21:00)
[2020-01-12] MEDS: (Linaclotide (Linzess) 290 MCG) PO SCH (08:24)
[2020-01-12] MEDS: ESTROGEN CON PO SCH (08:25)
[2020-01-12] MEDS: M PROGEST ACET PO SCH (08:25)
[2020-01-12] MEDS: Telmisartan 80 MG PO SCH (08:25)
[2020-01-12] MEDS: CLONIDINE HCL 0.1 MG TABLET PO PRN (11:36)
[2020-01-12] MEDS: HYDROCODONE/ACETAMINOPHEN 5/325 MG TAB PO PRN (13:05)
--- NOTE | 2020-01-12 16:10 | NUR ---
concern PT TURNED THERMAL TECHNICIAN LIGHT ALERTING THE NURSE THAT SHE FEELS A "COLD SENSATION" ALL OVER HER BODY, LIKE PIN PRICKS. PT DENIES PAIN, DENIES, CHEST PAIN, DENIES ITCHING. NO REDNESS NOTED. VS STABLE. PAGED DR WOMACK AT THIS TIME, PENDING CB
--- NOTE | 2020-01-12 16:30 | NUR ---
ANXIETY PER DR WOMACK- PT FEELING ANXIOUS, ADMINISTER XANAX 0.25MG PO X 1 DOSE. PT VERBALIZED UNDERTSTANIDNG
--- NOTE | 2020-01-12 16:50 | NUR ---
xanax dose aDMINISTERED. PT CALMER NOW, BP 129/66
[2020-01-12] MEDS ORDERED: ALPRAZOLAM 0.25 MG TABLET PO ONE (17:40)
[2020-01-12] MEDS: ATORVASTATIN CALCIUM 10 MG TABLET PO SCH (21:28)
[2020-01-12] MEDS: DIPHENHYDRAMINE HCL 25 MG CAPSULE PO PRN (21:36)
[2020-01-12] MEDS: TRAMADOL HCL 50 MG TABLET PO PRN (21:37)
--- NOTE | 2020-01-13 | NUR ---
PICC DRESSING CHANGED. TAPE WAS NOT SECURED ON ONE SIDE AND THERE WAS DRIED BLOOD ALL AROUND THE TAPE. ASEPTIC TECHNIQUE USED. PATIENT TOLERATED DRESSING CHANGE WELL. DRESSING MARKED WITH DATE/TIME/INITIALS.
[2020-01-13 04:00] VITALS: BP 136/57
[2020-01-13 05:19] LABS: BASOPHILS % (AUTO) 0.3 % (0.0-5.0); EOSINOPHILS % (AUTO) 1.1 % (0.0-8.0); HEMATOCRIT 37.6 % (36-48); LYMPHOCYTES % (AUTO) 12.7 % (21.0-51.0); MEAN CORPUSCULAR HEMOGLOBIN 32.5 pg (27.0-33.0); MEAN CORPUSCULAR HGB CONC 33.2 g/dL (32.0-36.0); MEAN CORPUSCULAR VOLUME 97.7 fL (79-99); MONOCYTES % (AUTO) 7.7 % (3.0-13.0); NEUTROPHILS % (AUTO) 77.8 % (40.0-77.0); PLATELET COUNT (AUTO) 292 K/uL (130-400); RED BLOOD CELL COUNT(AUTO) 3.85 MIL/uL (4.00-5.50); RED CELL DISTRIBUTION WIDTH 12.9 % (11.0-15.5); WHITE BLOOD COUNT (AUTO) 12.1 K/uL (4.8-10.8)
[2020-01-13 05:36] LABS: ALBUMIN 2.6 g/dL (3.5-5.0); BILIRUBIN,TOTAL 0.4 mg/dL (0.2-1.0); CREATININE 0.7 mg/dL (0.5-1.5); POTASSIUM 4.1 mmol/L (3.5-5.1); TOTAL PROTEIN, SERUM 6.4 g/dL (6.0-8.3)
[2020-01-13] MEDS: LEVOTHYROXINE 100 MCG TABLET PO SCH (05:51)
[2020-01-13] MEDS: CEFEPIME HCL 1 GM VIAL IVP SCH ×3 (05:51→20:56)
[2020-01-13] MEDS: LEVOTHYROXINE 25 MCG TABLET PO SCH (05:52)
[2020-01-13] MEDS: Telmisartan 80 MG PO SCH (07:34)
[2020-01-13 08:11] VITALS: BP 145/72
[2020-01-13] MEDS: M PROGEST ACET PO SCH (09:00)
[2020-01-13] MEDS: (Linaclotide (Linzess) 290 MCG) PO SCH (09:00)
[2020-01-13] MEDS: CLOTRIMAZOLE/BETAMETHASONE DIP 45 GM CREAM.GM. TP SCH ×2 (09:00→21:00)
[2020-01-13] MEDS: ESTROGEN CON PO SCH (09:00)
[2020-01-13] MEDS: GABAPENTIN 100 MG CAPSULE PO SCH ×3 (09:13→20:51)
[2020-01-13] MEDS: CITALOPRAM 20 MG TABLET PO SCH (09:13)
[2020-01-13] MEDS: PHENAZOPYRIDINE HCL 200 MG TABLET PO SCH ×3 (09:14→20:50)
[2020-01-13] MEDS: PANTOPRAZOLE 40 MG/VIAL IVP SCH (09:14)
[2020-01-13 11:23] VITALS: BP 149/69
[2020-01-13 16:05] VITALS: BP 142/65
[2020-01-13] MEDS: 1/2 NORMAL SALINE 1,000 ML IV SCH ×2 (18:40→22:10)
[2020-01-13] MEDS: HYDROCODONE/ACETAMINOPHEN 5/325 MG TAB PO PRN (20:51)
[2020-01-13] MEDS: ATORVASTATIN CALCIUM 10 MG TABLET PO SCH (20:51)
[2020-01-13 20:52] VITALS: BP 150/64
[2020-01-13] MEDS ORDERED: HYDROXYZINE HCL 25 MG TABLET PO SCH (21:00)
[2020-01-14 00:19] VITALS: BP 150/64
[2020-01-14 04:18] VITALS: BP 157/75
[2020-01-14] MEDS: LEVOTHYROXINE 100 MCG TABLET PO SCH (06:13)
[2020-01-14] MEDS: CEFEPIME HCL 1 GM VIAL IVP SCH (06:13)
[2020-01-14] MEDS: LEVOTHYROXINE 25 MCG TABLET PO SCH (06:13)
[2020-01-14] MEDS: TRAMADOL HCL 50 MG TABLET PO PRN (06:15)
[2020-01-14 06:18] LABS: BASOPHILS % (AUTO) 0.3 % (0.0-5.0); EOSINOPHILS % (AUTO) 1.6 % (0.0-8.0); HEMATOCRIT 41.3 % (36-48); LYMPHOCYTES % (AUTO) 13.1 % (21.0-51.0); MEAN CORPUSCULAR HEMOGLOBIN 31.7 pg (27.0-33.0); MONOCYTES % (AUTO) 6.5 % (3.0-13.0); PLATELET COUNT (AUTO) 307 K/uL (130-400); RED BLOOD CELL COUNT(AUTO) 4.17 MIL/uL (4.00-5.50); RED CELL DISTRIBUTION WIDTH 13.1 % (11.0-15.5); WHITE BLOOD COUNT (AUTO) 12.7 K/uL (4.8-10.8)
[2020-01-14 06:36] LABS: ALBUMIN 2.7 g/dL (3.5-5.0); BILIRUBIN,TOTAL 0.4 mg/dL (0.2-1.0); CREATININE 0.8 mg/dL (0.5-1.5); POTASSIUM 3.9 mmol/L (3.5-5.1)
[2020-01-14 08:00] VITALS: BP 156/67
[2020-01-14] MEDS: (Linaclotide (Linzess) 290 MCG) PO SCH (09:00)
[2020-01-14] MEDS ORDERED: DULOXETINE HCL 30 MG CAP PO SCH (09:00)
[2020-01-14] MEDS: M PROGEST ACET PO SCH (09:00)
[2020-01-14] MEDS: ESTROGEN CON PO SCH (09:00)
[2020-01-14] MEDS: Telmisartan 80 MG PO SCH (09:00)
[2020-01-14] MEDS: PANTOPRAZOLE SODIUM 40 MG TABLET.DR PO SCH (10:16)
[2020-01-14] MEDS: CITALOPRAM 20 MG TABLET PO SCH (10:16)
[2020-01-14] MEDS: GABAPENTIN 100 MG CAPSULE PO SCH (10:32)
[2020-01-14] MEDS: PHENAZOPYRIDINE HCL 200 MG TABLET PO SCH (10:32)
[2020-01-14] MEDS: CLOTRIMAZOLE/BETAMETHASONE DIP 45 GM CREAM.GM. TP SCH (10:34)
[2020-01-14 11:15] VITALS: BP 151/72
--- NOTE | 2020-01-14 11:25 | NUR ---
DISCHARGE PATIENT GIVEN DISCHARGE INSTRUCTIONS VIA TEACH BACK. PATIENT TO FOLLOW UP WITH DR. WOMACK TO HAVE PICC LINE REMOVED AT MD'S OFFICE. RX GIVEN, PATIENT STABLE AT THIS TIME. PATIENT WHEELED TO ER BY AJITH DAMIAN FOR DISCHARGE.
== END 2020-01-14 11:55 | disposition home or self-care (01) | DRG 690 ==
LOC: EDH 10:50 → EDHIP 10:51 → OBSVTOIN 10:51 → 4BH 11:37
PROVIDERS: ADMIT Internal Medicine; ATTEND Internal Medicine
PROC: 02HV33Z Insertion of Infusion Device into Superior Vena Cava, Percutaneous Approach (ICD-10-PCS; principal; 2020-01-09)
PROC: B548ZZA Ultrasonography of Superior Vena Cava, Guidance (ICD-10-PCS; 2020-01-09)
DX: N39.0 Urinary tract infection, site not specified (principal); K57.92 Diverticulitis of intestine, part unspecified, without perforation or abscess without bleeding; Z68.41 Body mass index [BMI] 40.0-44.9, adult; R07.89 Other chest pain; M54.5 Low back pain; K31.84 Gastroparesis; J44.9 Chronic obstructive pulmonary disease, unspecified; I10 Essential (primary) hypertension; E78.5 Hyperlipidemia, unspecified; E03.9 Hypothyroidism, unspecified; M48.02 Spinal stenosis, cervical region; K21.9 Gastro-esophageal reflux disease without esophagitis; F41.1 Generalized anxiety disorder; M79.2 Neuralgia and neuritis, unspecified; F32.9 Major depressive disorder, single episode, unspecified; E86.0 Dehydration; E66.01 Morbid (severe) obesity due to excess calories; Z88.3 Allergy status to other anti-infective agents; Z88.1 Allergy status to other antibiotic agents; Z90.49 Acquired absence of other specified parts of digestive tract; Z88.5 Allergy status to narcotic agent; Z88.8 Allergy status to other drugs, medicaments and biological substances; Z79.899 Other long term (current) drug therapy
CPT/HCPCS: 36415; 80048; 80053; 80076; 81003; 82948; 83690; 83880; 85025; 85610; 85730; 87088; 97039; C1894; C9113; G0378; J0692; Q0163

== ENCOUNTER 2020-05-28 11:44 | Observation (INO) | payer OTHER, MEDICARE ==
[~2020-05-28] VITALS: Ht 162.6 cm; Wt 116.2 kg
[~2020-05-28 11:44] MED LIST changes: -CEFU500T67 PO; +CITA10TA7 PO; +HYDR-4060 PO; -INHALER; -NEBULIZER; +TRAM50TA4 PO
[2020-05-28 12:45] LABS: BASOPHILS % (AUTO) 0.5 % (0.0-5.0); EOSINOPHILS % (AUTO) 2.4 % (0.0-8.0); HEMATOCRIT 41.4 % (36-48); LYMPHOCYTES % (AUTO) 12.1 % (21.0-51.0); MEAN CORPUSCULAR HEMOGLOBIN 32.2 pg (27.0-33.0); MEAN CORPUSCULAR HGB CONC 32.6 g/dL (32.0-36.0); MEAN CORPUSCULAR VOLUME 98.8 fL (79-99); NEUTROPHILS % (AUTO) 78.5 % (40.0-77.0); PLATELET COUNT (AUTO) 317 K/uL (130-400); RED BLOOD CELL COUNT(AUTO) 4.19 MIL/uL (4.00-5.50); RED CELL DISTRIBUTION WIDTH 12.9 % (11.0-15.5); WHITE BLOOD COUNT (AUTO) 14.9 K/uL (4.8-10.8)
[2020-05-28 12:59] LABS: CREATININE 1.5 mg/dL (0.5-1.5); POTASSIUM 4.1 mmol/L (3.5-5.1)
[2020-05-28 13:01] LABS: INR 0.87 (0.85-1.15); PARTIAL THROMBOPLASTIN TIME 23.8 SEC (26.3-35.5); PROTHROMBIN TIME 9.4 SEC (9.6-11.6)
[2020-05-28 13:04] LABS: ALBUMIN 3.1 g/dL (3.5-5.0); BILIRUBIN,TOTAL 0.4 mg/dL (0.2-1.0)
[2020-05-28] MEDS ORDERED: ASPIRIN 325 MG TABLET ONE (13:25)
[2020-05-28] MEDS ORDERED: POTASSIUM CHLORIDE 20 MEQ ERTAB PO PRN (14:45)
[2020-05-28] MEDS ORDERED: ACETAMINOPHEN 325 MG TAB PO PRN (14:45)
[2020-05-28] MEDS ORDERED: POTASSIUM CHLORIDE 10% ELIXIR 20 MEQ/15 ML UDCUP PO PRN (14:45)
[2020-05-28] MEDS ORDERED: POTASSIUM CHLORIDE 20MEQ/100ML 100 ML IV PRN (14:45)
[2020-05-28] MEDS ORDERED: HYDRALAZINE HCL 20 MG/ML VIAL IV PRN (14:45)
[2020-05-28] MEDS ORDERED: LIDOCAINE HCL-MPF 1% 2ML VIAL IV PRN (14:45)
[2020-05-28] MEDS ORDERED: LACTULOSE 20 GM/30 ML UDCUP PO PRN (14:45)
[2020-05-28] MEDS ORDERED: MAGNESIUM 2GM PREMIX 50ML 50 ML IV PRN (14:45)
[2020-05-28] MEDS ORDERED: GLUCAGON 1MG KIT 1 MG ML IM PRN (14:45)
[2020-05-28] MEDS ORDERED: DEXTROSE 50%-WATER 50 ML DISP.SYRIN IV PRN (14:45)
[2020-05-28] MEDS ORDERED: LOPERAMIDE 1 MG/7.5 ML UDCUP PO PRN (14:45)
[2020-05-28] MEDS ORDERED: ONDANSETRON HCL 4 MG/2 ML VIAL IVP PRN (14:45)
[2020-05-28] MEDS ORDERED: ACETAMINOPHEN 325 MG TAB ONE (16:53)
[2020-05-28] MEDS: ENOXAPARIN SODIUM 0.5 MG/KG EACH SQ SCH (21:00)
[2020-05-28] MEDS: FAMOTIDINE 20MG TAB 20 MG TAB PO SCH (21:00)
[2020-05-28] MEDS ORDERED: ENOXAPARIN SODIUM 60 MG/0.6 ML SQ ONE (21:50)
[2020-05-28] MEDS ORDERED: DEXAMETHASONE SOD PHOSPHATE 10MG/ML 1ML VIAL ONE (21:50)
[2020-05-29 06:31] LABS: ABG BASE EXCESS 3.6 mmol/L (-2.0-3.0); ABG HCO3 29.3 mmol/L (21.0-28.0); ABG OXYGEN SATURATION 93.9 % (95.0-99.0); ABG PCO2 48 mmHg (32-45)
[2020-05-29 06:47] LABS: BASOPHILS % (AUTO) 0.3 % (0.0-5.0); EOSINOPHILS % (AUTO) 1.4 % (0.0-8.0); MEAN CORPUSCULAR HEMOGLOBIN 32.8 pg (27.0-33.0); MEAN CORPUSCULAR HGB CONC 33.8 g/dL (32.0-36.0); MEAN CORPUSCULAR VOLUME 97.3 fL (79-99); MONOCYTES % (AUTO) 4.9 % (3.0-13.0); PLATELET COUNT (AUTO) 319 K/uL (130-400); RED BLOOD CELL COUNT(AUTO) 4.11 MIL/uL (4.00-5.50); RED CELL DISTRIBUTION WIDTH 12.6 % (11.0-15.5); WHITE BLOOD COUNT (AUTO) 13.5 K/uL (4.8-10.8)
[2020-05-29 07:15] LABS: ALANINE AMINOTRANSFERASE 24 U/L (12-78); ALBUMIN 2.9 g/dL (3.5-5.0); AMYLASE 32 U/L (25-115); ASPARTATE AMINOTRANSFERASE 16 U/L (10-37); BILIRUBIN,DIRECT 0.1 mg/dL (0.0-0.3); BILIRUBIN,TOTAL 0.5 mg/dL (0.2-1.0); CARBON DIOXIDE 28 mmol/L (21-32); CHLORIDE 103 mmol/L (101-111); CREATININE 0.7 mg/dL (0.5-1.5); GLOMERULAR FILTR. RATE CALC 86 mL/min (>60); GLUCOSE,RANDOM 108 mg/dL (70-105); PHOSPHORUS 3.7 mg/dL (2.5-4.9); SODIUM SERUM 140 mmol/L (136-145); TOTAL PROTEIN, SERUM 6.6 g/dL (6.0-8.3); UREA NITROGEN, BLOOD 18 mg/dL (7-18)
[2020-05-29 08:10] LABS: LIPASE 46 U/L (114-286)
[2020-05-29] MEDS: ENOXAPARIN SODIUM 0.5 MG/KG EACH SQ SCH (09:00)
[2020-05-29] MEDS: DEXAMETHASONE SOD PHOSPHATE 4 MG/ML 1ML VIAL IVP SCH (09:00)
[2020-05-29] MEDS: FAMOTIDINE 20MG TAB 20 MG TAB PO SCH (09:00)
[2020-05-29 17:25] VITALS: BP 159/78
[2020-05-29 19:00] VITALS: BP 154/93
[2020-05-29] MEDS ORDERED: ALPRAZOLAM 0.5 MG TABLET PO PRN (19:30)
--- NOTE | 2020-05-29 19:43 | NUR ---
INITIAL SW spoke with patient's spouse, Mil Cano. Patient lives with spouse. She has no home health but [facility] nurse calls once a month. Patient has PHC with [facility] 24.5 hrs a week. DME: rollator, shower chair. Patient needs help with ADL's and does not drive. PCP is Dr. Mil Meyer. Pharmacy is [facility]. DCP is home. Addendum: 05/29/20 at 1945 by JUNE CHARLES SS Amended: Links added.
[2020-05-29] MEDS ORDERED: PANT40TA54 PO (19:57)
[2020-05-29] MEDS ORDERED: CEFA500C3 PO (19:57)
[2020-05-29] MEDS: INSULIN HUMULIN R 100 UNIT/ML 3ML SQ SCH (20:37)
--- NOTE | 2020-05-29 20:55 | NUR ---
NOTE PATIENT SAYS FEELING BETTER ABOUT ANXIETY, BUT FEELS SOME SOB. O2 SAT [id number] AND SEEN AT 90%. PLACED ON O2 AT 2 L N/C PER STANDING ORDER, AFTER A FEW DEEP BREATHS PATIENT SATS 96-97% AND SUSTAINING THAT.
[2020-05-29] MEDS ORDERED: QUETIAPINE FUMARATE 25 MG TAB PO SCH (21:00)
[2020-05-30] VITALS: BP 156/74
[2020-05-30] MEDS: ENOXAPARIN SODIUM 60 MG/0.6 ML SQ SCH ×2 (00:13→08:21)
[2020-05-30 00:20] LABS: RAPID GROUP A STREP NEGATIVE (NEGATIVE)
[2020-05-30 04:00] VITALS: BP 146/60
[2020-05-30] MEDS: INSULIN HUMULIN R 100 UNIT/ML 3ML SQ SCH ×2 (05:50→11:30)
[2020-05-30 05:59] LABS: CARBON DIOXIDE 27 mmol/L (21-32); CHLORIDE 103 mmol/L (101-111); CREATINE KINASE, TOTAL 37 U/L (21-232); CREATININE 0.7 mg/dL (0.5-1.5); GLOMERULAR FILTR. RATE CALC 86 mL/min (>60); GLUCOSE,RANDOM 88 mg/dL (70-105); MYOGLOBIN 46 ng/mL (10-92); POTASSIUM 3.8 mmol/L (3.5-5.1); SODIUM SERUM 143 mmol/L (136-145); THYROID STIMULATING HORMONE 0.42 uIU/mL (0.36-3.74); TROPONIN I < 0.04 ng/mL (0.00-0.06); UREA NITROGEN, BLOOD 15 mg/dL (7-18)
[2020-05-30 07:07] LABS: BASOPHILS % (AUTO) 0.3 % (0.0-5.0); EOSINOPHILS % (AUTO) 2.2 % (0.0-8.0); HEMATOCRIT 40.6 % (36-48); LYMPHOCYTES % (AUTO) 14.9 % (21.0-51.0); MEAN CORPUSCULAR HEMOGLOBIN 31.8 pg (27.0-33.0); MEAN CORPUSCULAR HGB CONC 31.8 g/dL (32.0-36.0); MONOCYTES % (AUTO) 6.2 % (3.0-13.0); NEUTROPHILS % (AUTO) 75.9 % (40.0-77.0); PLATELET COUNT (AUTO) 291 K/uL (130-400); RED BLOOD CELL COUNT(AUTO) 4.06 MIL/uL (4.00-5.50); RED CELL DISTRIBUTION WIDTH 12.6 % (11.0-15.5); WHITE BLOOD COUNT (AUTO) 12.6 K/uL (4.8-10.8)
[2020-05-30 08:12] VITALS: BP 177/82
[2020-05-30] MEDS: FAMOTIDINE 20MG TAB 20 MG TAB PO SCH (08:21)
[2020-05-30] MEDS: DEXAMETHASONE SOD PHOSPHATE 4 MG/ML 1ML VIAL IVP SCH (08:22)
[2020-05-30] MEDS ORDERED: QUETIAPINE FUMARATE 25 MG TAB PO SCH (09:00)
[2020-05-30 11:38] VITALS: BP 166/67
== END 2020-05-30 16:45 | disposition home or self-care (01) ==
LOC: EDH 11:44 → EDHIP 14:35 → 3BH 05-29 16:43
PROVIDERS: ADMIT Internal Medicine Critical Care Medicine; ATTEND Internal Medicine Critical Care Medicine
DX: R07.89 Other chest pain (principal); Z20.828 Contact with and (suspected) exposure to other viral communicable diseases; I10 Essential (primary) hypertension; F41.9 Anxiety disorder, unspecified; E03.9 Hypothyroidism, unspecified; E66.9 Obesity, unspecified; R09.02 Hypoxemia; Z79.899 Other long term (current) drug therapy
CPT/HCPCS: 36415 ×3; 36600; 71045 ×2; 71250; 80048 ×2; 80053; 80076; 82150; 82550 ×2; 82728; 82803; 82948 ×6; 83690; 83735; 83874; 83880; 84100; 84145; 84443; 84484 ×3; 85025 ×3; 85378 ×2; 85610; 85730; 86140; 87426; 87804 ×2; 87880; 93005 ×2; 96372; 96374; 96375; 97039 ×2; 97116; 97161; 99285; G0378 ×11; G8978; G8979; G8980; G8981; G8982; G8983; J0360; J1100 ×2; J1650 ×3; U0003; 96376

== ENCOUNTER → 2022-04-20 | Outpatient (CLI) | payer OTHER, MEDICARE ==
[~2022-04-20] MED LIST changes: +CEFA500C3 PO; -CITA10TA7 PO; +CITA10TA89 PO; -ESTR-3 PO; -LEVO200T10 PO; -LINA290C PO; -OMEP40CA13 PO; +PANT40TA54 PO; -TRAM50TA4 PO
[2022-04-20 11:39] LABS: ALBUMIN 3.5 g/dL (3.5-5.0); BILIRUBIN,TOTAL 0.6 mg/dL (0.2-1.0); POTASSIUM 3.7 mmol/L (3.5-5.1); TOTAL PROTEIN, SERUM 7.4 g/dL (6.0-8.3)
== END | disposition home or self-care (01) ==
LOC: LAB 10:34
PROVIDERS: ATTEND Internal Medicine Gastroenterology
DX: R10.84 Generalized abdominal pain (principal)
CPT/HCPCS: 36415; 80053

== ENCOUNTER → 2022-04-27 | Outpatient (CLI) | payer OTHER, MEDICARE ==
[~2022-04-27] MED LIST changes: +IOHEXOL 350 MG/ML 100ML INFUS..BTL IV ONE
== END | disposition home or self-care (01) ==
LOC: RAH 07:56
PROVIDERS: ATTEND Internal Medicine Gastroenterology
DX: K43.9 Ventral hernia without obstruction or gangrene (principal); R10.84 Generalized abdominal pain
CPT/HCPCS: 74178; Q9967

== ENCOUNTER → 2022-06-30 | Outpatient (CLI) | payer OTHER, MEDICARE ==
[~2022-06-30] MED LIST changes: -IOHEXOL 350 MG/ML 100ML INFUS..BTL IV ONE
== END | disposition home or self-care (01) ==
LOC: OIH 12:08
PROVIDERS: ATTEND Internal Medicine Cardiovascular Disease
DX: I73.9 Peripheral vascular disease, unspecified (principal)
CPT/HCPCS: 93925

== ENCOUNTER 2022-10-26 08:45 | Emergency (ER) | payer OTHER, MEDICARE ==
[~2022-10-26] VITALS: Ht 144.8 cm; Wt 97.1 kg
[2022-10-26] MEDS ORDERED: PANTOPRAZOLE 40 MG/VIAL IVP STA (08:59)
[2022-10-26 09:07] LABS: BASOPHILS % (AUTO) 0.3 % (0.0-5.0); HEMATOCRIT 41.3 % (36-48); LYMPHOCYTES % (AUTO) 12.5 % (21.0-51.0); MEAN CORPUSCULAR HEMOGLOBIN 32.1 pg (27.0-33.0); MEAN CORPUSCULAR HGB CONC 32.7 g/dL (32.0-36.0); MEAN CORPUSCULAR VOLUME 98.1 fL (79-99); MONOCYTES % (AUTO) 4.1 % (3.0-13.0); NEUTROPHILS % (AUTO) 81.6 % (40.0-77.0); PLATELET COUNT (AUTO) 351 K/uL (130-400); RED BLOOD CELL COUNT(AUTO) 4.21 MIL/uL (4.00-5.50); RED CELL DISTRIBUTION WIDTH 14.6 % (11.0-15.5); WHITE BLOOD COUNT (AUTO) 12.8 K/uL (4.8-10.8)
[2022-10-26 09:20] LABS: ALBUMIN 3.4 g/dL (3.5-5.0); CREATININE 1.3 mg/dL (0.5-1.5); POTASSIUM 3.9 mmol/L (3.5-5.1); TOTAL PROTEIN, SERUM 7.3 g/dL (6.0-8.3)
[2022-10-26 09:28] LABS: B-TYPE NATRIURETIC PEPTIDE 58 pg/mL (0-100)
[2022-10-26] MEDS ORDERED: MAG/ALUM/SIMETH 30 ML UDCUP PO ONE (11:30)
[2022-10-26] MEDS ORDERED: LIDOCAINE HCL 2% VISCOUS 15 ML UDCUP PO ONE (11:30)
[2022-10-26] MEDS ORDERED: KETOROLAC 30MG VIAL (30MG/ML) IVP ONE (12:00)
[2022-10-26] MEDS ORDERED: PANT40TA55 PO (13:29)
[2022-10-26 13:31] VITALS: BP 124/56
== END 2022-10-26 13:48 | disposition home or self-care (01) ==
LOC: EDH 08:45
DX: K43.9 Ventral hernia without obstruction or gangrene (principal); K29.70 Gastritis, unspecified, without bleeding; Z20.822 Contact with and (suspected) exposure to COVID-19; Z88.1 Allergy status to other antibiotic agents; Z88.8 Allergy status to other drugs, medicaments and biological substances; E03.9 Hypothyroidism, unspecified; E78.00 Pure hypercholesterolemia, unspecified; Z79.899 Other long term (current) drug therapy; Z90.710 Acquired absence of both cervix and uterus; Z90.49 Acquired absence of other specified parts of digestive tract; Z98.890 Other specified postprocedural states
CPT/HCPCS: 99285; 84484; 80053; 83880; 83690; 85025; 87804 ×2; 36415; 87635; 71045; 74176; 96374; 96375; 93005; C9803; J1885; C9113

== ENCOUNTER 2022-11-02 10:54 | Emergency (ER) | payer OTHER, MEDICARE ==
[~2022-11-02] VITALS: Ht 149.9 cm; Wt 117.9 kg
[~2022-11-02 10:54] MED LIST changes: +PANT40TA55 PO
[2022-11-02] MEDS ORDERED: FAMOTIDINE 20MG VIAL IV ONE (11:30)
[2022-11-02] MEDS ORDERED: KETOROLAC 30MG VIAL (30MG/ML) IVP ONE (11:30)
[2022-11-02 12:14] LABS: BASOPHILS % (AUTO) 0.1 % (0.0-5.0); EOSINOPHILS % (AUTO) 0.2 % (0.0-8.0); HEMATOCRIT 40.3 % (36-48); LYMPHOCYTES % (AUTO) 7.6 % (21.0-51.0); MEAN CORPUSCULAR HEMOGLOBIN 32.1 pg (27.0-33.0); MEAN CORPUSCULAR VOLUME 97.3 fL (79-99); MONOCYTES % (AUTO) 5.4 % (3.0-13.0); NEUTROPHILS % (AUTO) 86.1 % (40.0-77.0); PLATELET COUNT (AUTO) 359 K/uL (130-400); RED BLOOD CELL COUNT(AUTO) 4.14 MIL/uL (4.00-5.50); RED CELL DISTRIBUTION WIDTH 13.8 % (11.0-15.5); WHITE BLOOD COUNT (AUTO) 16.2 K/uL (4.8-10.8)
[2022-11-02 12:25] LABS: CREATININE 1.1 mg/dL (0.5-1.5); POTASSIUM 4.1 mmol/L (3.5-5.1)
[2022-11-02 12:27] LABS: APPEARANCE,URINE CLEAR (CLEAR); BILIRUBIN,URINE NEGATIVE (NEGATIVE); COLOR,URINE LIGHT-YELLOW (YELLOW); GLUCOSE, URINE (UA) NEGATIVE (NEGATIVE); KETONES,URINE NEGATIVE (NEGATIVE); LEUKOCYTE ESTERASE ,URINE NEGATIVE Leu/uL (NEGATIVE); NITRATE,URINE NEGATIVE (NEGATIVE); OCCULT BLOOD,URINE NEGATIVE (NEGATIVE); PROTEIN,URINE 10 mg/dL (NEGATIVE); UROBILINOGEN,URINE 0.2 mg/dL (0.2-1.0)
[2022-11-02 12:29] LABS: ALBUMIN 3.3 g/dL (3.5-5.0); TOTAL PROTEIN, SERUM 7.3 g/dL (6.0-8.3)
[2022-11-02 12:39] LABS: BACTERIA,URINE RARE /HPF (None Seen); MUCUS,URINE RARE LPF (None Seen); SQUAMOUS EPITHELIAL CELL,UR RARE /HPF (0-2)
[2022-11-02] MEDS ORDERED: IOHEXOL 350 MG/ML 100ML INFUS..BTL IV ONE (13:38)
[2022-11-02] MEDS ORDERED: IBUP-1493 PO (14:19)
[2022-11-02] MEDS ORDERED: FAMO-136 PO (14:19)
[2022-11-02] MEDS ORDERED: DiphenhydrAMINE HCL 50 MG/ML VIAL IV ONE (14:30)
[2022-11-02 14:42] VITALS: BP 142/87
== END 2022-11-02 14:50 | disposition home or self-care (01) ==
LOC: EDH 10:54
DX: N34.2 Other urethritis (principal); R10.9 Unspecified abdominal pain; E11.9 Type 2 diabetes mellitus without complications; I10 Essential (primary) hypertension; E78.00 Pure hypercholesterolemia, unspecified; Z79.899 Other long term (current) drug therapy; Z88.1 Allergy status to other antibiotic agents; Z88.5 Allergy status to narcotic agent
CPT/HCPCS: 99285; 74177; 96374; 96375; 80053; 83690; 85025; 81001; 36415; J1200; J3490; J1885; Q9967

== ENCOUNTER → 2022-11-13 | Outpatient (CLI) | payer OTHER, MEDICARE ==
[~2022-11-13] MED LIST changes: +FAMO-136 PO; +IBUP-1493 PO
[2022-11-13 12:52] LABS: CREATININE 1.1 mg/dL (0.5-1.5); POTASSIUM 3.6 mmol/L (3.5-5.1)
== END | disposition home or self-care (01) ==
LOC: LAB 08:40
PROVIDERS: ATTEND Physician Assistant
DX: I10 Essential (primary) hypertension (principal)
CPT/HCPCS: 36415; 80048

== ENCOUNTER 2023-05-21 16:27 | Observation (INO) | payer OTHER, MEDICARE ==
[~2023-05-21] VITALS: Ht 144.8 cm; Wt 99.3 kg
[2023-05-21 17:10] LABS: BASOPHILS # (AUTO) 0.04 K/uL (0.00-0.20); BASOPHILS % (AUTO) 0.4 % (0.0-5.0); EOSINOPHILS # (AUTO) 0.29 K/uL (0.00-0.70); EOSINOPHILS % (AUTO) 2.9 % (0.0-8.0); HEMATOCRIT 37.9 % (36-48); IMMATURE GRANULOCYTE ABSOLUTE 0.03 K/uL (0-1); LYMPHOCYTES # (AUTO) 1.9 K/uL (1.0-4.8); LYMPHOCYTES % (AUTO) 19.1 % (21.0-51.0); MEAN CORPUSCULAR HEMOGLOBIN 31.2 pg (27.0-33.0); MEAN CORPUSCULAR HGB CONC 33.2 g/dL (32.0-36.0); MEAN CORPUSCULAR VOLUME 93.8 fL (79-99); MONOCYTES # (AUTO) 0.5 K/uL (0.1-1.0); MONOCYTES % (AUTO) 5.1 % (3.0-13.0); NEUTROPHILS # (AUTO) 7.2 K/uL (1.8-7.7); NEUTROPHILS % (AUTO) 72.2 % (40.0-77.0); PLATELET COUNT (AUTO) 333 K/uL (130-400); RED BLOOD CELL COUNT(AUTO) 4.04 MIL/uL (4.00-5.50); RED CELL DISTRIBUTION WIDTH 14.7 % (11.0-15.5)
[2023-05-21 17:20] LABS: CREATININE 1.4 mg/dL (0.5-1.5); POTASSIUM 4.1 mmol/L (3.5-5.1)
[2023-05-21 17:30] LABS: ALBUMIN 3.4 g/dL (3.5-5.0); BILIRUBIN,TOTAL 0.5 mg/dL (0.2-1.0); TOTAL PROTEIN, SERUM 7.1 g/dL (6.0-8.3)
[2023-05-21 17:37] LABS: RAPID GROUP A STREP negative (NEGATIVE)
[2023-05-21 17:49] LABS: INFLUENZA TYPE A Negative For Type A (NEGATIVE); INFLUENZA TYPE B Negative For Type B (NEGATIVE)
[2023-05-21 18:26] LABS: SARS-CoV-2, RNA, NAAT NEGATIVE SARS CoV-2 (NEGATIVE)
[2023-05-21] MEDS ORDERED: KETOROLAC 15MG/ML VIAL (15MG/ML) IV ONE ×2 (18:30→23:00)
[2023-05-21] MEDS ORDERED: FAMOTIDINE 20MG VIAL IV ONE (18:30)
[2023-05-21] MEDS ORDERED: ONDANSETRON 4MG INJ IVP ONE (18:30)
[2023-05-21] MEDS ORDERED: IOHEXOL-350 75 ML VIAL IV ONE (18:50)
[2023-05-21 19:23] LABS: APPEARANCE,URINE CLEAR (CLEAR); BILIRUBIN,URINE NEGATIVE (NEGATIVE); COLOR,URINE YELLOW (YELLOW); GLUCOSE, URINE (UA) NEGATIVE (NEGATIVE); KETONES,URINE NEGATIVE (NEGATIVE); LEUKOCYTE ESTERASE ,URINE 25 Leu/uL (NEGATIVE); NITRATE,URINE NEGATIVE (NEGATIVE); OCCULT BLOOD,URINE NEGATIVE (NEGATIVE); PROTEIN,URINE 20 mg/dL (NEGATIVE); UROBILINOGEN,URINE 0.2 mg/dL (0.2-1.0)
[2023-05-21 19:29] LABS: ADD UA MICROSCOPIC YES
[2023-05-21 19:53] LABS: BACTERIA,URINE RARE /HPF (None Seen); MUCUS,URINE RARE LPF (None Seen); NON-SQUAMOUS EPITHELIAL CELL 1 /HPF (0-2); SQUAMOUS EPITHELIAL CELL,UR FEW /HPF (0-2)
[2023-05-21] MEDS ORDERED: 0.9%NACL 1000ML 1,000 ML IV ONE (21:00)
[2023-05-21] MEDS ORDERED: CEFTRIAXONE 2GM VIAL IVPB ONE (21:00)
[2023-05-21] MEDS ORDERED: CEFTRIAXONE 1G VIAL IVPB SCH (23:00)
[2023-05-21] MEDS ORDERED: ACETAMINOPHEN 325 MG TAB PO PRN (23:00)
[2023-05-22] MEDS: DEXTROSE 5 %-0.45 % NACL 1,000 ML IV SCH ×2 (01:22→09:00)
[2023-05-22] MEDS ORDERED: ESCI-8 PO (03:17)
[2023-05-22] MEDS ORDERED: AEC81 PO (03:17)
[2023-05-22] MEDS ORDERED: ACET-2079 PO (03:17)
[2023-05-22] MEDS ORDERED: LINA72CA PO (03:17)
[2023-05-22] MEDS ORDERED: FURO20TA4 PO (03:17)
[2023-05-22] MEDS ORDERED: CARV3.12 PO (03:17)
[2023-05-22] MEDS ORDERED: HYDR-3421 PO (03:17)
[2023-05-22] MEDS ORDERED: HYDROXYZINE 25 MG TABLET PO PRN (03:30)
[2023-05-22] MEDS ORDERED: ONDANSETRON 4MG INJ ONE (05:06)
[2023-05-22 05:30] VITALS: BP 164/75; PULSE 61; RESP 18
[2023-05-22] MEDS ORDERED: ONDANSETRON 4MG INJ IVP PRN (05:30)
[2023-05-22 05:48] VITALS: O2SAT 96
[2023-05-22] MEDS ORDERED: ACETAMINOPHEN WITH CODEINE 1 TAB TAB PO PRN (06:00)
[2023-05-22 06:48] LABS: BASOPHILS # (AUTO) 0.05 K/uL (0.00-0.20); BASOPHILS % (AUTO) 0.4 % (0.0-5.0); EOSINOPHILS # (AUTO) 0.19 K/uL (0.00-0.70); EOSINOPHILS % (AUTO) 1.7 % (0.0-8.0); HEMATOCRIT 35.3 % (36-48); IMMATURE GRANULOCYTE ABSOLUTE 0.05 K/uL (0-1); LYMPHOCYTES # (AUTO) 2.1 K/uL (1.0-4.8); LYMPHOCYTES % (AUTO) 18.5 % (21.0-51.0); MEAN CORPUSCULAR HEMOGLOBIN 31.1 pg (27.0-33.0); MEAN CORPUSCULAR HGB CONC 33.1 g/dL (32.0-36.0); MEAN CORPUSCULAR VOLUME 93.9 fL (79-99); MONOCYTES # (AUTO) 0.6 K/uL (0.1-1.0); MONOCYTES % (AUTO) 5.4 % (3.0-13.0); NEUTROPHILS # (AUTO) 8.4 K/uL (1.8-7.7); NEUTROPHILS % (AUTO) 73.6 % (40.0-77.0); PLATELET COUNT (AUTO) 300 K/uL (130-400); RED BLOOD CELL COUNT(AUTO) 3.76 MIL/uL (4.00-5.50); RED CELL DISTRIBUTION WIDTH 14.6 % (11.0-15.5); WHITE BLOOD COUNT (AUTO) 11.4 K/uL (4.8-10.8)
[2023-05-22 07:03] LABS: ALBUMIN 3.1 g/dL (3.5-5.0); BILIRUBIN,TOTAL 0.4 mg/dL (0.2-1.0); CREATININE 1.4 mg/dL (0.5-1.5); POTASSIUM 4.3 mmol/L (3.5-5.1); TOTAL PROTEIN, SERUM 6.5 g/dL (6.0-8.3)
[2023-05-22 07:40] VITALS: O2SAT 95
[2023-05-22 08:00] VITALS: BP 169/73; PULSE 62; RESP 16
[2023-05-22] MEDS ORDERED: PANTOPRAZOLE 40 MG TAB DR PO SCH (09:00)
[2023-05-22] MEDS ORDERED: CARVEDILOL 3.125 MG TABLET PO SCH (09:00)
[2023-05-22] MEDS ORDERED: Telmisartan 40 MG PO SCH (09:00)
[2023-05-22] MEDS ORDERED: ASPIRIN 81 MG EC TAB PO SCH (09:00)
[2023-05-22] MEDS ORDERED: FUROSEMIDE 20 MG TABLET PO SCH (09:00)
[2023-05-22 10:30] VITALS: BP 142/78; PULSE 59; RESP 16
[2023-05-22] MEDS ORDERED: ATORVASTATIN 10 MG TABLET PO SCH (21:00)
== END 2023-05-22 11:20 | disposition home or self-care (01) ==
LOC: EDH 16:27 → EDHIP 21:38 → 4DH 05-22 05:53
PROVIDERS: ADMIT Internal Medicine; ATTEND Internal Medicine
DX: N39.0 Urinary tract infection, site not specified (principal); Z20.822 Contact with and (suspected) exposure to COVID-19; E86.0 Dehydration; I10 Essential (primary) hypertension; E66.01 Morbid (severe) obesity due to excess calories; K29.70 Gastritis, unspecified, without bleeding; E03.9 Hypothyroidism, unspecified; E78.00 Pure hypercholesterolemia, unspecified; F41.9 Anxiety disorder, unspecified; G31.9 Degenerative disease of nervous system, unspecified; G89.29 Other chronic pain; F32.A Depression, unspecified; E11.9 Type 2 diabetes mellitus without complications; M19.90 Unspecified osteoarthritis, unspecified site; R11.2 Nausea with vomiting, unspecified; Z88.5 Allergy status to narcotic agent; Z79.82 Long term (current) use of aspirin; Z88.8 Allergy status to other drugs, medicaments and biological substances; Z90.710 Acquired absence of both cervix and uterus; Z68.42 Body mass index [BMI] 45.0-49.9, adult
CPT/HCPCS: 96365; 96375; 99285; 84484; 80053 ×2; 85025 ×2; 87077; 87088; 87186; 87880; 87804 ×2; 81001; 36415 ×2; 87635; 71045; 70450; 74177; 93005; 96376; 96361 ×2; 82948 ×3; G0378 ×13; C9803; J3490; J7030; J0696; J2405 ×2; J1885 ×2; Q9967

== ENCOUNTER → 2024-08-21 | Outpatient (CLI) | payer OTHER, MEDICARE ==
[~2024-08-21] MED LIST changes: +ACET-2079 PO; +AEC81 PO; +CARV3.12 PO; -CEFA500C3 PO; +ESCI-8 PO; +FURO20TA4 PO; +HYDR-3421 PO; +LINA72CA PO; -PANT40TA54 PO
--- NOTE | 2024-08-21 11:11 | HMCIMG ---
MAMMO SCREENING BILATERAL HISTORY: Screening mammogram. COMPARISON: 02/28/2016 TECHNIQUE: Bilateral screening mammogram with CAD was performed with craniocaudal and mediolateral oblique projections. FINDINGS: There are scattered areas of fibroglandular density. There is no evidence of a dominant mass, or suspicious microcalcification. There is no evidence of nipple retraction or skin thickening. IMPRESSION: 1. Stable mammogram. Patient was entered into a reminder system with a target due date for their next mammogram. BI-RADS: CATEGORY 2: BENIGN FINDINGS Recommend monthly self breast exam as well as annual clinical examination. A negative x-ray should not delay biopsy if a dominant or clinically suspicious mass is present, since 8-10% of cancers are not identified by mammography. Dense breasts particularly, may obscure an underlying neoplasm. Some of these may be detected clinically and therefore, clinical examination is an essential part of breast evaluation.
== END | disposition home or self-care (01) ==
LOC: RAH 10:06
PROVIDERS: ATTEND Internal Medicine
DX: Z12.31 Encounter for screening mammogram for malignant neoplasm of breast (principal); R92.323 Mammographic fibroglandular density, bilateral breasts
CPT/HCPCS: 77067

== ENCOUNTER 2024-10-05 10:45 | Emergency (ER) | payer OTHER, MEDICARE ==
[~2024-10-05] VITALS: Ht 139.7 cm; Wt 81.6 kg
[2024-10-05 10:45] VITALS: TEMP 98.4
--- NOTE | 2024-10-05 10:54 | ERN ---
ED Note History of Present Illness Stated Complaint: FLANK PAIN Chief Complaint: Flank Pain Time Seen by MD: 10:46 Dictation: PATIENT IS AN 79-YEAR-OLD FEMALE COMING IN TODAY WITH COMPLAINTS OF LEFT FLANK PAIN THAT RADIATES TO LEFT LOWER QUADRANT WITH DYSURIA ONSET 2-3 DAYS PRIOR TO ARRIVAL. NO FEVER NO CHILLS NO NAUSEA VOMITING. SHE IS CURRENTLY ON AUGMENTIN 875, PRESCRIBED BY HER PRIMARY CARE DOCTOR TWO DAYS AGO AFTER SHE WAS DIAGNOSED IN HIS OFFICE WITH A AN ULTRASOUND WITH RENAL STONES. NO MEDICATIONS WERE PROVIDED HER THAT DAY FOR PAIN AND SHE WAS NOT REFERRED TO UROLOGY. Allergies: Coded Allergies: ANJANA Inhibitors (Verified Allergy, Unknown, 04/18/18) levofloxacin (Unverified Allergy, Unknown, RASH, 06/09/15) morphine (Unverified Allergy, Unknown, RASH, 06/09/15) Home Meds Active Scripts Clotrimazole (Clotrimazole) 1 % Cream..g., 1 APPL TP BID for 7 Days, #15 GM 0 Refills apply to affected area(s) Prov:KAYLEN CISNEROS NP 10/05/24 Ibuprofen (Ibuprofen) 600 Mg Tablet, 600 MG PO Q6H PRN for PAIN, #30 TAB Prov:KAYLEN CISNEROS NP 10/05/24 Ibuprofen (Motrin/Advil) 800 Mg Tab, 800 MG PO Q8H, #12 TAB Prov:QING SAENZ MD 11/02/22 Famotidine (Pepcid) 20 Mg Tablet, 20 MG PO Q12H for 14 Days, #28 TAB Prov:QING SAENZ MD 11/02/22 Pantoprazole Sodium (Protonix) 40 Mg Ectab, 40 MG PO DAILY for 30 Days, #30 TAB.EC Prov:LILIA LUNA MD 10/26/22 Reported Medications Acetaminophen with Codeine (Acetaminophen-Cod #3 Tablet) 1 Each Tablet, 1 EACH PO AD PRN for PAIN LEVEL 4 TO 6, TAB 05/22/23 Aspirin (ASPIRIN 81 MG ECTAB) 81 Mg Ectab, 81 MG PO DAILY, TAB.EC 05/22/23 Escitalopram Oxalate (Escitalopram Oxalate) 10 Mg Tablet, 10 MG PO DAILY, TAB 05/22/23 Hydroxyzine HCl (Hydroxyzine HCl) 25 Mg Tablet, 25 MG PO BID PRN for OTHER [SEE ORDER COMMENTS], TAB 05/22/23 Linaclotide (Linzess) 72 Mcg Capsule, 72 MCG PO DAILY, CAP 05/22/23 Furosemide (Furosemide) 20 Mg Tablet, 20 MG PO DAILY, TAB 05/22/23 Carvedilol (Carvedilol) 3.125 Mg Tablet, 3.125 MG PO BID, TAB 05/22/23 Hydrocodone/Acetaminophen (Hydrocodon-Acetaminophen 5-325) 1 Each Tablet, 1 EACH PO BID PRN for PAIN LEVEL 4 TO 6, TAB 01/09/20 Citalopram Hydrobromide (Citalopram HBr) 10 Mg Tablet, 10 MG PO DAILY, TAB 01/09/20 Famotidine (Famotidine) 20 Mg Tablet, 20 MG PO HS, TAB 12/26/19 Levothyroxine Sodium (Levothyroxine Sodium) 25 Mcg Tablet, 25 MCG PO ACBKFST, TAB 12/26/19 Telmisartan (Telmisartan) 80 Mg Tablet, 40 MG PO DAILY, TAB 07/15/19 Atorvastatin Calcium (Atorvastatin Calcium) 10 Mg Tablet, 10 MG PO HS, TAB 08/22/16 Past Medical History Past Medical History: Anxiety, Arthritis, Depression, Diabetes-Type II, High Cholesterol, Heart Disease, Hypertension Additional Past Medical Hx: THYROID Surgical History: Hysterectomy, Unknown Surgical History Other: KNEES, NECK, EYES, INTESTINAL SURGERY Social History: Negative History: Not Applicable RN Note Reviewed/Agreed w/PFSH: Yes Review of System Dictation CONSTITUTIONAL: NEGATIVE EXCEPT FOR HPI HEAD/FACE: NEGATIVE EXCEPT FOR HPI EENT: NEGATIVE EXCEPT FOR HPI RESPIRATORY: NEGATIVE EXCEPT FOR HPI GASTROINTESTINAL/ABDOMINAL: NEGATIVE EXCEPT FOR HPI LEFT FLANK PAIN RADIATING LEFT LOWER QUADRANT GENITOURINARY: NEGATIVE EXCEPT FOR HPI DYSURIA MUSCULOSKELETAL: NEGATIVE EXCEPT FOR HPI INTEGUMENTARY: NEGATIVE EXCEPT FOR HPI NEUROLOGICAL/PSYCH: NEGATIVE EXCEPT FOR HPI HEMATOLOGIC/LYMPHATIC: NEGATIVE EXCEPT FOR HPI ALL SYSTEMS NEGATIVE, EXCEPT NOTED ABOVE. 13 POINT REVIEW OF SYSTEMS ASSESSED AND ALL NEGATIVE EXCEPT FOR ABOVE. Initial Vital Sign VS Vital Signs Date Time Temp Pulse Resp B/P (MAP) Pulse Ox O2 Delivery O2 Flow Rate FiO2 10/05/24 10:45 98.4 80 16 137/78 98 Room Air 0 10/05/24 10:45 21 Physical Exam Dictation VITAL SIGNS REVIEWED JOHN GONZALEZ IN ROOM WITH THE EXAM GENERAL APPEARANCE: ALERT, ORIENTED X 3, MODERATE ACUTE DISTRESS, WELL DEVELOPED, NOURISHED. HEAD AND FACE: NON-TRAUMATIC. EYES: PERRL, PINK CONJUNCTIVAS, EYELID NO TRAUMA, ANTERIOR CHAMBER WITH ARCUS SENILIS. EARS: PINNAS INTACT AND NO SIGNS OF TRAUMA OR ERYTHEMA EAR CANALS CLEAR AND NO DISCHARGE TM NO ERYTHEMA NOSE: NO DISCHARGE, NO BLEEDING. OROPHARYNX: MOUTH NORMAL, TONGUE PINK, PHARYNX CLEAR,NO ERYTHEMA, TONSILS NO EXUDATES, NO ABSCESSES NOTED, MUCOUS MEMBRANE MOIST NECK: SUPPLE, NON-TENDER, NO THYROMEGALY, NO MASSES, NO JVD, NO BRUITS BREAST:DEFERRED CHEST:NO TENDERNESS, NO CREPITUS, NO PARADOXICAL MOVEMENT, NO RETRACTIONS LUNGS:CLEAR, WELL-VENTILATED, SYMMETRIC, NO RALES, NO WHEEZING, NO RHONCHI, NO STRIDOR, GOOD BREATH SOUNDS BILATERALLY HEART: REGULAR RATE, REGULAR RHYTHM, NO MURMUR, NO GALLOPS VASCULAR: NO PERIPHERAL EDEMA, ABDOMEN: SOFT, POSITIVE BOWEL SOUNDS, NONDISTENDED, NO GUARDING, NONTENDER, NO REBOUND, NO MASSES NO HEPATOMEGALY, NO SPLENOMEGALY, NO SERRA'S SIGN, NO HERNIAS. NEGATIVE CVAT RECTAL: DEFERRED GENITAL: PATIENT COMPLAINING OF BURNING TO VAGINA, EXAM DEMONSTRATES ERYTHEMA TO INTROITUS. NO DISCHARGE NEUROLOGICAL: NORMAL SPEECH, MOTOR FUNCTION INTACT, SENSORY FUNCTION INTACT MUSCULOSKELETAL: NECK NONTENDER, FULL RANGE OF MOTION, BACK NONTENDER, FULL RANGE OF MOTION, EXTREMITIES: NONTENDER, FULL RANGE OF MOTION SKIN: COLOR PINK, DRY, NO TURGOR, NO RASH, NO LACERATIONS, NO ABRASIONS, NO CONTUSIONS. LYMPHATIC: DEFERRED Results (Laboratory/Radiology) Laboratory/Radiology Laboratory Tests Test 10/05/24 11:00 10/05/24 11:26 Urine Color LIGHT-YELLOW (YELLOW) Urine Appearance CLEAR (CLEAR) Urine pH 6.5 (5.0-8.0) Urine Specific [place] 1.013 (1.001-1.031) Urine Protein NEGATIVE mg/dL (NEGATIVE) Urine Glucose (UA) NEGATIVE mg/dL (NEGATIVE) Urine Ketones NEGATIVE mg/dL (NEGATIVE) Urine Occult Blood NEGATIVE (NEGATIVE) Urine Nitrate NEGATIVE (NEGATIVE) Urine Bilirubin NEGATIVE mg/dL (NEGATIVE) Urine Urobilinogen 0.2 mg/dL (0.2-1.0) Urine Leukocyte Esterase 25 Miriam/uL (NEGATIVE) H Urine RBC 0-1 /HPF (0-1) Urine WBC 2-5 /HPF (0-1) H Urine Squamous Epithelial Cells RARE /HPF (0-2) Urine Bacteria RARE /HPF (None Seen) White Blood Count 9.9 K/uL (4.8-10.8) Red Blood Count 3.75 MIL/uL (4.00-5.50) L Hemoglobin 11.8 g/dL (12.0-16.0) L Hematocrit 35.2 % (36-48) L Mean Corpuscular Volume 93.9 fL (79-99) Mean Corpuscular Hemoglobin 31.5 pg (27.0-33.0) Mean Corpuscular Hemoglobin Concent 33.5 g/dL (32.0-36.0) Red Cell Distribution Width 13.5 % (11.0-15.5) Platelet Count 303 K/uL (130-400) Mean Platelet Volume 10.4 fL (7.5-10.5) Immature Granulocyte % (Auto) 0.2 % (0-1) Neutrophils (%) (Auto) 74.1 % (40.0-77.0) Lymphocytes (%) (Auto) 18.5 % (21.0-51.0) L Monocytes (%) (Auto) 5.0 % (3.0-13.0) Eosinophils (%) (Auto) 1.7 % (0.0-8.0) Basophils (%) (Auto) 0.5 % (0.0-5.0) Neutrophils # (Auto) 7.3 K/uL (1.8-7.7) Lymphocytes # (Auto) 1.8 K/uL (1.0-4.8) Monocytes # (Auto) 0.5 K/uL (0.1-1.0) Eosinophils # (Auto) 0.17 K/uL (0.00-0.70) Basophils # (Auto) 0.05 K/uL (0.00-0.20) Absolute Immature Granulocyte (auto 0.02 K/uL (0-1) Nucleated Red Blood Cells 0.0 % (0.0-0.19) Sodium Level 141 mmol/L (136-145) Potassium Level 4.2 mmol/L (3.5-5.1) Chloride Level 104 mmol/L (101-111) Carbon Dioxide Level 32 mmol/L (21-32) Blood Urea Nitrogen 14 mg/dL (7-18) Creatinine 1.0 mg/dL (0.5-1.0) Glomerular Filtration Rate Calc 57 mL/min (>90) Random Glucose 90 mg/dL (70-105) Total Calcium 9.1 mg/dL (8.5-10.1) REASON: LEFT FLANK PAIN RADIATING TO LEFT LOWER QUADRANT HISTORY OF UROLITHIASIS ORDERING PHYSICIAN: KAYLEN CISNEROS NP PROCEDURE: ABD PEL WO - CT ABDOMEN/PELVIS W/O CONTRAST CT ABDOMEN/PELVIS W/O CONTRAST REASON: LEFT FLANK PAIN RADIATING TO LEFT LOWER QUADRANT HISTORY OF UROLITHIASIS COMPARISON: 05/21/2023 FINDINGS: Lung bases are clear. There are no focal liver lesions. There is a 3 mm nonobstructing stone in the left kidney, there is an additional 3 mm stone in the lower pole calyx.. Kidneys appear otherwise normal with no mass or hydronephrosis. Ureters appear normal, there are no visible ureteral stones.. Spleen and pancreas appear unremarkable. There has been a previous cholecystectomy. Bowel loops appear unremarkable. The appendix was not separately identified, there is no secondary CT evidence of acute appendicitis. There is no evidence of free fluid or intraperitoneal air. There are no focal fluid collections. Aorta and retroperitoneum appear normal as do pelvic soft tissue structures. The anterior abdominal wall is intact. Osseous structures appear unremarkable. IMPRESSION: 1. 3 mm nonobstructing stone in a middle pole calyx left kidney, there is an additional 3 mm stone in the lower pole calyx. Absent gallbladder. 3. Otherwise unremarkable exam, no evidence of ureteral stone or hydronephrosis. Labs Reviewed?: Yes ED Course ED Course Orders Procedure Category Date Status Time Cbc With Differential LAB 10/05/24 Complete 10:49 Urinalysis Profile LAB 10/05/24 Complete 10:49 0.9%Nacl 1000ml (Ns PHA 10/05/24 Complete 1000ml) 11:00 Ketorolac PHA 10/05/24 Complete Tromethamine 30mg/Ml 11:00 Ondansetron 4mg Inj PHA 10/05/24 Complete (Zofran 4mg Inj) 11:00 Ct Abdomen/Pelvis W/O CT 10/05/24 Resulted Contrast 10:49 Basic Metabolic Panel LAB 10/05/24 Complete 10:49 Phenazopyridine Hcl PHA 10/05/24 Complete 200 Mg Tab (Pyridium 11:00 Current Medications Medications (Trade) Dose Ordered Sig/[place] Route PRN Reason Start Time Stop Time Status Last Admin Dose Admin Ketorolac Tromethamine (toRADol) 30 mg ONCE ONCE IVP 10/05/24 11:00 10/05/24 11:01 DC 10/05/24 11:10 Ondansetron HCl (zoFRAN 4MG INJ) 4 mg ONCE ONCE IVP 10/05/24 11:00 10/05/24 11:01 DC 10/05/24 11:10 Phenazopyridine HCl (PYRIdium HCL 200 MG TAB) 200 mg ONCE ONCE PO 10/05/24 11:00 10/05/24 11:01 DC 10/05/24 11:10 Sodium Chloride 1,000 ml @ 0 mls/hr ONCE ONCE IV 10/05/24 11:00 10/05/24 11:01 DC 10/05/24 11:10 Vital Signs Date Time Temp Pulse Resp B/P (MAP) Pulse Ox O2 Delivery O2 Flow Rate FiO2 10/05/24 12:22 64 18 151/54 98 Room Air* 0 10/05/24 10:45 98.4 80 16 137/78 98 Room Air* 0 10/05/24 10:45 98.4 80 16 137/78 98 Room Air 0 12:00 O'CLOCK, PATIENT WILL BE DISCHARGED HOME WITH VAGINITIS AND RENAL STONES. SENT HOME WITH MEDICATION FOR PAIN AND FOR VAGINITIS WE WILL HAVE HER FOLLOW UP WITH HER PRIMARY CARE DOCTOR. Medical Decision Making MDM MDM: DIFFERENTIAL DIAGNOSIS: HYDRONEPHROSIS/HYDROURETER/PYELONEPHRITIS/UTI/VAGINITIS/VULVOVAGINITIS/ELECTROLY TE IMBALANCE/ RATIONALE: TESTS CONSIDERED AND ORDERED SECONDARY TO SHARED DECISION MAKING INCLUDE: RADIOLOGY/LABS PREVIOUS OUTSIDE RECORDS REVIEWED: OLD ER VISITS. REVIEWED RISK OF COMPLICATION AND/OR MORBIDITY OR MORTALITY OF PATIENT MANAGEMENT: NONE MEDICATIONS-PER MEDICATION RECONCILIATION SEE NURSE'S NOTES NEED FOR HOSPITALIZATION: PATIENT DOES NOT MEET CRITERIA FOR HOSPITALIZATION. NO NEED FOR EMERGENCY MAJOR/MINOR SURGERY: NO THERE ARE NO SOCIAL CONCERNS WITH THIS PATIENT. PRESCRIPTION DRUG MANAGEMENT IBUPROFEN/CLOTRIMAZOLE PRESCRIPTIONS WILL INCLUDE SYMPTOMATIC CARE PATIENT'S PRIOR EXTERNAL MEDICAL RECORDS FROM OTHER ER VISITS WERE REVIEWED BY ME INDICATED. PRIOR TESTING AND RESULTS FROM PREVIOUS VISITS WERE REVIEWED. PRIOR TESTS WERE TAKEN INTO ACCOUNT WITH MEDICAL DECISION MAKING AND RESOURCE UTILIZATION, INDEPENDENT HISTORIAN/HISTORIANS WERE USED TO OBTAIN COMPLETE MEDICAL HISTORY. I INDEPENDENTLY INTERPRETED THE TEST THAT WERE PERFORMED, RESULTS WERE REVIEWED BY ME AND CONSIDERED FINDINGS ON RADIOLOGY IF ORDERED. MEDICAL MANAGEMENT AND EXAMINATION INTERPRETATION DISCUSSIONS WERE HAD BY ME WITH OTHER QUALIFIED HEALTHCARE PROFESSIONALS INDICATED FOR THE PATIENT'S CARE. DX & DISP Disposition: Discharge Departure Impression: Primary Impression: Kidney stones Additional Impressions: Ureteral colic, Vulvovaginal rash Condition: Stable Scripts Clotrimazole (Clotrimazole) 1 % Cream..g. 1 APPL TP BID for 7 Days, #15 GM 0 Refills apply to affected area(s) Prov: KAYLEN CISNEROS NP 10/05/24 Ibuprofen (Ibuprofen) 600 Mg Tablet 600 MG PO Q6H PRN for PAIN, #30 TAB Prov: KAYLEN CISNEROS CHANGEOVER OPERATOR 10/05/24 Additional Instructions: FOLLOW-UP WITH PRIMARY CARE PROVIDER IN 1 TO 2 DAYS. TAKE MEDICATIONS DIRECTED HERE IN THE EMERGENCY ROOM. OKAY TO CONTINUE HOME MEDICATIONS UNLESS OTHERWISE DISCUSSED DURING YOUR VISIT IN THE EMERGENCY ROOM TODAY. RETURN TO YOUR NEAREST EMERGENCY ROOM IF SYMPTOMS WORSEN OR IF THERE IS NO IMPROVEMENT. CALL 911 IF YOU NEED IMMEDIATE ASSISTANCE. TAKE TYLENOL OR MOTRIN [id number] NEEDED AND IF NO CONTRAINDICATIONS ARE PRESENT. INCREASE ORAL HYDRATION. A WOUND CULTURE OR URINE CULTURE WAS ORDERED HERE IN THE EMERGENCY ROOM DEPARTMENT PLEASE FOLLOW-UP WITH PRIMARY CARE PROVIDER AND ADVISE THEM TO GET REPEAT PORTS FROM OUR FACILITY. IF YOU HAD ANY ANJANA WRAP/SPLINTS THAT WERE APPLIED HERE, PLEASE DO NOT REMOVE THEM UNTIL YOU SEE YOUR PRIMARY CARE OR SPECI AUGMENTIN FROM CONTINUE ANTIBIOTICS FROM YOUR DOCTOR UNTIL GONE. , INCREASE YOUR WATER INTAKE., USE CLOTRIMAZOLE DIRECTED TWICE A DAY FOR SEVEN DAYS. Referrals: DANA WOMACK MD (PCP) Time of Disposition: 12:02 I have reviewed the case, and I agree with, Diagnosis and Plan ATTESTATION BY PHYSICIAN I PERFORMED THE SUBSTANTIVE PORTION OF THE VISIT. I HAVE REVIEWED AND PERSONALLY MADE AND APPROVED THE MANAGEMENT PLAN THAT IS DOCUMENTED IN THE NOTE BY MYSELF FOR THE A PP. I ACKNOWLEDGED FOR RESPONSIBILITY FOR THE PATIENT'S MANAGEMENT PLAN. KAYLEN CISNEROS NP Oct 05, 2024 10:54 LILIA LUNA MD Oct 06, 2024 08:56
[2024-10-05 11:09] LABS: APPEARANCE,URINE CLEAR (CLEAR); BILIRUBIN,URINE NEGATIVE (NEGATIVE); COLOR,URINE LIGHT-YELLOW (YELLOW); GLUCOSE, URINE (UA) NEGATIVE (NEGATIVE); KETONES,URINE NEGATIVE (NEGATIVE); LEUKOCYTE ESTERASE ,URINE 25 Leu/uL (NEGATIVE); NITRATE,URINE NEGATIVE (NEGATIVE); OCCULT BLOOD,URINE NEGATIVE (NEGATIVE); PH,URINE 6.5 (5.0-8.0); PROTEIN,URINE NEGATIVE (NEGATIVE); UROBILINOGEN,URINE 0.2 mg/dL (0.2-1.0)
[2024-10-05 11:10] LABS: ADD UA MICROSCOPIC YES
[2024-10-05] MEDS: PHENAZOpyridine HCL 200 MG TAB 200 MG TABLET PO ONE (11:10)
[2024-10-05] MEDS: ketOROlac 30MG VIAL (30MG/ML) IVP ONE (11:10)
[2024-10-05] MEDS: ondanSETRON 4MG INJ IVP ONE (11:10)
[2024-10-05] MEDS: 0.9%NACL 1000ML 1,000 ML IV ONE (11:10)
[2024-10-05 11:12] LABS: BACTERIA,URINE RARE /HPF (None Seen); MUCUS,URINE RARE LPF (None Seen); RBC,URINE 0-1 /HPF (0-1); SQUAMOUS EPITHELIAL CELL,UR RARE /HPF (0-2)
--- NOTE | 2024-10-05 11:37 | HMCIMG ---
CT ABDOMEN/PELVIS W/O CONTRAST REASON: LEFT FLANK PAIN RADIATING TO LEFT LOWER QUADRANT HISTORY OF UROLITHIASIS COMPARISON: 05/21/2023 FINDINGS: Lung bases are clear. There are no focal liver lesions. There is a 3 mm nonobstructing stone in the left kidney, there is an additional 3 mm stone in the lower pole calyx.. Kidneys appear otherwise normal with no mass or hydronephrosis. Ureters appear normal, there are no visible ureteral stones.. Spleen and pancreas appear unremarkable. There has been a previous cholecystectomy. Bowel loops appear unremarkable. The appendix was not separately identified, there is no secondary CT evidence of acute appendicitis. There is no evidence of free fluid or intraperitoneal air. There are no focal fluid collections. Aorta and retroperitoneum appear normal as do pelvic soft tissue structures. The anterior abdominal wall is intact. Osseous structures appear unremarkable. IMPRESSION: 1. 3 mm nonobstructing stone in a middle pole calyx left kidney, there is an additional 3 mm stone in the lower pole calyx. Absent gallbladder. 3. Otherwise unremarkable exam, no evidence of ureteral stone or hydronephrosis. CT was performed with one or more following dose reduction techniques: automated exposure control, adjustment of the mA and kv according to patient's size, or use of a iterative reconstruction technique.
[2024-10-05 11:39] LABS: BASOPHILS # (AUTO) 0.05 K/uL (0.00-0.20); BASOPHILS % (AUTO) 0.5 % (0.0-5.0); EOSINOPHILS # (AUTO) 0.17 K/uL (0.00-0.70); EOSINOPHILS % (AUTO) 1.7 % (0.0-8.0); HEMATOCRIT 35.2 % (36-48); IMMATURE GRANULOCYTE ABSOLUTE 0.02 K/uL (0-1); LYMPHOCYTES # (AUTO) 1.8 K/uL (1.0-4.8); LYMPHOCYTES % (AUTO) 18.5 % (21.0-51.0); MEAN CORPUSCULAR HEMOGLOBIN 31.5 pg (27.0-33.0); MEAN CORPUSCULAR HGB CONC 33.5 g/dL (32.0-36.0); MEAN CORPUSCULAR VOLUME 93.9 fL (79-99); MONOCYTES # (AUTO) 0.5 K/uL (0.1-1.0); NEUTROPHILS # (AUTO) 7.3 K/uL (1.8-7.7); NEUTROPHILS % (AUTO) 74.1 % (40.0-77.0); PLATELET COUNT (AUTO) 303 K/uL (130-400); RED BLOOD CELL COUNT(AUTO) 3.75 MIL/uL (4.00-5.50); RED CELL DISTRIBUTION WIDTH 13.5 % (11.0-15.5); WHITE BLOOD COUNT (AUTO) 9.9 K/uL (4.8-10.8)
[2024-10-05 11:48] LABS: POTASSIUM 4.2 mmol/L (3.5-5.1)
[2024-10-05] MEDS ORDERED: CLOT15CR23 TP (12:04)
[2024-10-05] MEDS ORDERED: IBUP-2070 PO (12:04)
[2024-10-05 12:22] VITALS: BP 151/54; PULSE 64; RESP 18; O2SAT 98
== END 2024-10-05 12:44 | disposition home or self-care (01) ==
LOC: EDH 10:45
DX: N20.0 Calculus of kidney (principal); N23 Unspecified renal colic; R21 Rash and other nonspecific skin eruption; E11.9 Type 2 diabetes mellitus without complications; E78.00 Pure hypercholesterolemia, unspecified; F32.A Depression, unspecified; F41.9 Anxiety disorder, unspecified; I10 Essential (primary) hypertension; M19.90 Unspecified osteoarthritis, unspecified site; Z79.82 Long term (current) use of aspirin; Z79.899 Other long term (current) drug therapy; Z88.1 Allergy status to other antibiotic agents; Z88.5 Allergy status to narcotic agent; Z90.710 Acquired absence of both cervix and uterus
CPT/HCPCS: 99285; 74176; 96374; 96361; 96375; 80048; 85025; 81001; 36415; J7030; J2405; J1885

== ENCOUNTER 2025-05-04 06:10 | Observation (INO) | payer OTHER, MEDICAID ==
[2025-04-30 09:55] LABS: IMMATURE GRANULOCYTE ABSOLUTE 0.03 K/uL (0-1); NUCLEATED RED BLOOD CELLS 0.0 % (0.0-0.19); PLATELET COUNT (AUTO) 284 K/uL (130-400); RED BLOOD CELL COUNT(AUTO) 3.86 MIL/uL (4.00-5.50); RED CELL DISTRIBUTION WIDTH 13.0 % (11.0-15.5); WHITE BLOOD COUNT (AUTO) 9.7 K/uL (4.8-10.8)
[2025-04-30 10:05] VITALS: BP 189/66; PULSE 69; RESP 18; TEMP 98
[2025-04-30 10:05] LABS: CREATININE 0.8 mg/dL (0.5-1.0); GLOMERULAR FILTR. RATE CALC 74 mL/min (>90); GLUCOSE,RANDOM 87 mg/dL (70-105); INR <= 0.93 (0.85-1.15); SODIUM SERUM 141 mmol/L (136-145); UREA NITROGEN, BLOOD 23 mg/dL (7-18)
--- NOTE | 2025-04-30 12:24 | NUR ---
PREOP INCENTIVE SPIROMETRY TEACHING DONE BY MARIALUISA BERRY
[2025-05-04] VITALS (27 sets, daily range): BP systolic 117–153; BP diastolic 46–67; PULSE 55–65; RESP 14–18; TEMP 97–98.2; O2SAT 92–96
[~2025-05-04] VITALS: Ht 147.3 cm; Wt 83.5 kg
[~2025-05-04 06:10] MED LIST changes: -ACET-2079 PO; +BRIM5DRO5 OU; -CARV3.12 PO; +CARV6.25 PO; -CITA10TA89 PO; -FAMO-136 PO; -FURO20TA4 PO; -HYDR-3421 PO; -HYDR-4060 PO; +IBUP-1492 PO; -IBUP-1493 PO; +LEVO175C3 PO; -LEVO25TA54 PO; -PANT40TA55 PO; +TIRZ7.5P SQ; +tramadol PO
[2025-05-04] MEDS ORDERED: LACTATED RINGERS 1000ML 1,000 ML IV ONE (06:51)
[2025-05-04] MEDS ORDERED: LIDOCAINE PF 100MG/5ML (2%) SYRINGE 5ML ONE (08:35)
[2025-05-04] MEDS ORDERED: SUCCINYLCHOLINE CHLORIDE 20 MG/ML 10 ML VIAL ONE (08:35)
[2025-05-04] MEDS ORDERED: NEOSTIGMINE METHYLSULFATE 1MG/ML IV ONE (08:36)
[2025-05-04] MEDS ORDERED: GLYCOPYRROLATE 0.2 MG/ML 5 ML VIAL ONE (08:36)
[2025-05-04] MEDS ORDERED: TRANEXAMIC ACID 1000MG/10ML ONE (09:25)
[2025-05-04] MEDS ORDERED: PoTASSium chl 10% ELIXIR 20MEQ 20 MEQ/15 ML UDCUP PO PRN (09:30)
[2025-05-04] MEDS ORDERED: PoTASSium chloRIDE 20MEQ ER 20 MEQ ERTAB PO PRN (09:30)
[2025-05-04] MEDS ORDERED: CALCIUM CARB 500MG PO PRN (09:30)
[2025-05-04] MEDS ORDERED: HYDROcodone/APAP 5/325 1 TAB TABLET PO PRN (09:30)
[2025-05-04] MEDS ORDERED: FE FUMARATE/FA/MV, MIN COMB#15 1 TAB PO PRN (09:30)
[2025-05-04] MEDS: TRANEXAMIC ACID 1000MG/10ML IV ONE (11:02)
[2025-05-04] MEDS: 0.9%NACL 1000ML 1,000 ML IV SCH (13:00)
--- NOTE | 2025-05-04 13:19 | HMCIMG ---
EXAM: CR right Shoulder, 1 View. CLINICAL HISTORY: S/P SHOULDER SURGERY COMPARISON: None provided. FINDINGS: Mild acromioclavicular joint osteoarthritis. Reverse [id number] right total shoulder arthroplasty in near anatomic alignment with no periprosthetic fracture appreciated. Edema surrounding the right shoulder joint. IMPRESSION: 1. Reverse total shoulder arthroplasty in near anatomic alignment with post-operative shoulder edema. 2. No acute findings. /[place]
[2025-05-04] MEDS: HYDROcodone/APAP 5/325 1 TAB TABLET PO PRN (13:47)
--- NOTE | 2025-05-04 15:52 | OP ---
Operative Note: DATE OF PROCEDURE: 05/04/25 SURGEON: JESSICA NGO MD COMPLEX MANAGER: KEVIN Reyes ANESTHESIA: General and interscalene block ANESTHESIOLOGIST/INSPECTOR OPEN DIE: MD Roni PREOPERATIVE DIAGNOSIS: Right glenohumeral arthritis POSTOPERATIVE DIAGNOSIS: Right glenohumeral arthritis PROCEDURE: Right reverse total shoulder arthroplasty ESTIMATED BLOOD LOSS: 150 cc COMPLICATIONS: None DRAINS: None SPECIMENS: resected bone from the humeral head not sent to pathology IMPLANTS: [employer] size 10 x 36 FX V135 humeral stem, 32 +3 135/145 cup, 32 mm centered glenosphere, +3 lateralized base plate with central screw, compression screw, and two locking screws INDICATIONS: 79-year-old female with right shoulder pain and dysfunction secondary to severe right glenohumeral arthritis. The patient was failing conservative management and we discussed total shoulder arthroplasty versus reverse total shoulder arthroplasty. We explained that showed a rotator cuff fail she would need revision of the anatomic replacement to a reverse. She therefore elected to move forward with reverse total shoulder arthroplasty. After discussion the risk, benefits, and alternatives, the patient voluntarily agreed to undergo the aforementioned procedure. DESCRIPTION OF PROCEDURE: Patient was properly identified in the preoperative holding area. Surgical site marking was verified and surgery consent reviewed. The patient was then taken to the operating room and placed in supine position on the OR table. After induction of general anesthesia, preoperative antibiotics were given, all bony prominences were well-padded as the patient was transitioned into beachchair positioning. The right upper extremity was then prepped and draped in usual sterile fashion. Surgical time out was done verifying correct surgery, side, site, and location to be performed. We then began the procedure by making approximately 12 cm long incision over the deltopectoral interval using a 10 blade. Hemostasis was performed using Bovie electrocautery. We then dissected through the subcutaneous tissues using the Metzenbaums to identify our deltopectoral interval. We then mobilized the cephalic vein laterally as we opened the interval. We then incised the clavipectoral fascia just lateral to the conjoined tendon and placed our retractor deep to this. We identified the long head of the biceps tendon and performed a tenotomy. We then began elevating the subscapularis off of its insertion on the humeral head using Bovie electrocautery. With external rotation we brought the humeral head into view and released the capsule at the inferior aspect of the head. We released a small portion of the pectoralis off of its insertion on the humerus to allow for better exposure. We then placed our retractors protecting soft tissue. At this point we began using the sounding instruments, hand reaming up to a size 10. We pinned the cutting guide off of the handle in 30 degrees of version and performed the humeral osteotomy. We then broached up to a size 10 x 36. The rongeur was used to clean up our cut. We placed a protective cap on the cut surface of the humerus and subluxated the humerus posteriorly. We then placed our retractors around the glenoid to provide adequate exposure of the glenoid. The labrum and long head biceps tendon were resected with Bovie electrocautery. We then used to the guide to insert our central guidepin ensuring we were far enough inferior on the glenoid face. Over the central guidepin we reamed with the all-in-one reamer for the central peg and the faceplate. We then used the waste handling technician to clean up the remaining soft tissue and bone. We then thoroughly irrigated out the glenoid bone and impacted into position the glenoid baseplate. We elected to place a central screw through the base plate. We then placed 1 compression screw and 2 locking screw in the baseplate. We noted using a freer elevator that the baseplate was appropriately seated. We elected to use a centered glenosphere. Glenosphere was then seated in standard fashion with the setscrew tightened. We then removed our retractors and dislocated the humerus once more. We placed the trial stem ensuring appropriate version. We then elected to trial with a size +3 polyethylene. With this in place, we reduced the humerus and noted good stable range of motion. We then dislocated the humerus and remove the trial components. We thoroughly irrigated out the bone. We seated the final stem implant and trialed once more. The size +3 polyethylene was still appropriate so we opened the final polyethylene and implanted this in standard fashion. We then reduced the humerus once more and ensured appropriate range of motion and stability. We checked the position of the components under fluoroscopy and f ound them to be appropriate. We thoroughly irrigated out the wound. We repaired the subscap to its insertion site with Ethibond suture. We then began loosely repairing the deltopectoral interval using #2 Ethibond. Subcutaneous tissue was approximated using 2-0 Vicryl. The skin was closed using a running subcuticular 3-0 Monocryl with Dermabond applied. An Optifoam dressing was applied once the Dermabond dried. The patient was then placed into a sling, awakened from anesthesia, and taken recovery room in stable condition. JESSICA NGO MD May 04, 2025 15:52
--- NOTE | 2025-05-04 19:08 | NUR ---
[facility] CM MET WITH PT AND SPOUSE IN ROOM THIS AFTERNOON, INITIAL ASSESSMENT DONE. PATIENT IS SEMI-INDEPENDENT PRIOR TO SURGERY, LIVES AT HOME WITH HER DANA. AT HOME PATIENT HAS A WALKER, ROLLATOR WALKER, SHOWER CHAIR, OXYGEN PORTABLE AND CONCENTRATOR BUT SHE USES ONLY PRN, BPM, PROVIDER 31HRS PER WEEK. DENIES ANY OTHER EQUIPMENT/SERVICES. FEELS SAFE TO GO BACK HOME, DOES NOT DRIVE, SPOUSE ABLE TO ASSIST WITH TRANSPORTATION AND NEEDS NECESSARY. DISCUSSED MD RECOMMENDATIONS FOR HOME W/HOME HEALTH, PT AGREEABLE, REQUESTING TO SIGNED [facility] ON BEHALF OF HER, SPOUSE SIGNED [facility] FOR [facility]. [facility] HOME W/HH ONCE APPROVED. CM TO CONTINUE TO FOLLOW UP. Addendum: 05/04/25 at 1911 by RACHELE POLLARD LVN Amended: Links added.
[2025-05-04] MEDS: BRIMONIDINE TARTRATE 0.2% 5 ML BOTTLE OU SCH (22:14)
[2025-05-05] VITALS: BP 106/64; PULSE 67; RESP 17; TEMP 98.2
[2025-05-05 04:00] VITALS: BP 108/45; PULSE 62; RESP 18; TEMP 98.2
[2025-05-05 04:45] LABS: NUCLEATED RED BLOOD CELLS 0.0 % (0.0-0.19); PLATELET COUNT (AUTO) 223.0 K/uL (130-400); RED BLOOD CELL COUNT(AUTO) 3.23 MIL/uL (4.00-5.50); RED CELL DISTRIBUTION WIDTH 13.1 % (11.0-15.5); WHITE BLOOD COUNT (AUTO) 11.3 K/uL (4.8-10.8)
[2025-05-05 04:55] LABS: CREATININE 1.2 mg/dL (0.5-1.0); GLOMERULAR FILTR. RATE CALC 45.0 mL/min (>90); GLUCOSE,RANDOM 96.0 mg/dL (70-105); SODIUM SERUM 138.0 mmol/L (136-145); UREA NITROGEN, BLOOD 25.0 mg/dL (7-18)
[2025-05-05] MEDS: HYDROcodone/APAP 5/325 1 TAB TABLET PO PRN (06:04)
[2025-05-05 08:00] VITALS: O2SAT 98
[2025-05-05 08:11] VITALS: BP 135/52; PULSE 58; RESP 20; TEMP 98.6
--- NOTE | 2025-05-05 08:22 | PN ---
Ortho postop day one. Patient is awake alert and oriented. She is seated out of bed in a chair comfortably. Arm in the arm sling. She is able to open and close hand on command and circumduct wrist without difficulty. The dressing is intact. Ice present. Vital signs have been stable. She has been afebrile. Laboratory results reviewed. Noted to have a drop in hemoglobin and hematocrit as expected after reverse shoulder arthroplasty. Patient is currently asymptomatic we will continue to observe. Operative findings discussed with the patient. Voiding on her own without difficulty. Eager to go home with HH/OT Family present in the room. Pending therapy this morning. Assessment: Status post right reverse shoulder arthroplasty. Asymptomatic acute postoperative blood loss anemia. Plan: Continue with Dr. Zhang reverse shoulder arthroplasty protocol and discharge planning. Asymptomatic acute postoperative blood loss anemia addressed with the protocol Vitals/Labs Vital Signs Date Time Temp Pulse Resp B/P (MAP) Pulse Ox O2 Delivery O2 Flow Rate FiO2 05/05/25 08:11 98.6 58 20 135/52 98 Room Air 05/05/25 04:00 3.0 05/04/25 19:00 32 Laboratory Tests 05/05/25 04:34 Medications Current Medications Cefazolin Sodium 2 gm STK-MED ONCE .ROUTE; Start 05/04/25 at 06:51; Stop 05/04/25 at 06:51; Status DC Lactated Ringer's 1,000 ml @ As Directed STK-MED ONCE IV; Start 05/04/25 at 06:51; Stop 05/04/25 at 06:51; Status DC Ropivacaine 150 mg STK-MED ONCE .ROUTE; Start 05/04/25 at 08:24; Stop 05/04/25 at 08:24; Status DC Lidocaine HCl 100 mg STK-MED ONCE .ROUTE; Start 05/04/25 at 08:35; Stop 05/04/25 at 08:35; Status DC Ondansetron HCl 4 mg STK-MED ONCE .ROUTE; Start 05/04/25 at 08:35; Stop 05/04/25 at 08:35; Status DC Succinylcholine Chloride 200 mg STK-MED ONCE .ROUTE; Start 05/04/25 at 08:35; Stop 05/04/25 at 08:36; Status DC Propofol 200 mg STK-MED ONCE IV; Start 05/04/25 at 08:35; Stop 05/04/25 at 08:36; Status DC Dexamethasone Sodium Phosphate 10 mg STK-MED ONCE .ROUTE; Start 05/04/25 at 08:36; Stop 05/04/25 at 08:36; Status DC Glycopyrrolate 1 mg STK-MED ONCE .ROUTE; Start 05/04/25 at 08:36; Stop 05/04/25 at 08:36; Status DC Neostigmine Methylsulfate 10 mg STK-MED ONCE IV; Start 05/04/25 at 08:36; Stop 05/04/25 at 08:36; Status DC Rocuronium Almena 50 mg STK-MED ONCE .ROUTE; Start 05/04/25 at 08:36; Stop 05/04/25 at 08:36; Status DC Fentanyl Citrate 100 mcg STK-MED ONCE .ROUTE; Start 05/04/25 at 08:36; Stop 05/04/25 at 08:37; Status DC Phenylephrine HCl 10 mg STK-MED ONCE IV; Start 05/04/25 at 08:40; Stop 05/04/25 at 08:40; Status DC Sodium Chloride 1,000 ml @ 100 mls/hr Q10H IV Last administered on 05/05/25at 05:49; Start 05/04/25 at 09:30; Stop 05/05/25 at 09:29 Polyethylene Glycol 17 gm DAILY PO; Start 05/05/25 at 09:00; Stop 06/04/25 at 08:59 Bisacodyl 10 mg DAILY PRN RC; Start 05/07/25 at 09:30; Stop 06/06/25 at 09:29 Aspirin 325 mg BID PO; Start 05/05/25 at 09:00; Stop 06/04/25 at 08:59 Ketorolac Tromethamine 15 mg Q6H PRN IV; Start 05/05/25 at 09:30; Stop 05/10/25 at 09:29 Multivitamins/Iron 1 tab DAILY PRN PO; Start 05/04/25 at 09:30; Stop 06/03/25 at 09:29 Ondansetron HCl 4 mg Q6H PRN IVP; Start 05/04/25 at 09:30; Stop 06/03/25 at 09:29 Calcium Carbonate 500 mg Q12H PRN PO; Start 05/04/25 at 09:30; Stop 06/03/25 at 09:29 Cefazolin Sodium 2 gm Q8H IVP Last administered on 05/04/25at 22:14; Start 05/04/25 at 14:30; Stop 05/04/25 at 22:31; Status DC Docusate Sodium 100 mg BID PO Last administered on 05/04/25at 19:49; Start 05/04/25 at 21:00; Stop 06/03/25 at 20:59 Ketorolac Tromethamine 15 mg Q8H IV Last administered on 05/05/25at 02:08; Start 05/04/25 at 09:30; Stop 05/05/25 at 01:31; Status DC Potassium Chloride 100 ml @ 100 mls/hr AD PRN IV; Start 05/04/25 at 09:30; Stop 06/03/25 at 09:29 Potassium Chloride 20 meq AD PRN PO; Start 05/04/25 at 09:30; Stop 06/03/25 at 09:29 Potassium Chloride 20 meq AD PRN PO; Start 05/04/25 at 09:30; Stop 06/03/25 at 09:29 Tramadol HCl 50 mg Q6H PRN PO; Start 05/04/25 at 09:30; Stop 05/09/25 at 09:29 Acetaminophen/ Hydrocodone Bitart Q4H PRN PO; Start 05/04/25 at 09:30; Stop 05/04/25 at 09:33; Status DC Atorvastatin Calcium 10 mg HS PO Last administered on 05/04/25at 19:49; Start 05/04/25 at 21:00; Stop 06/03/25 at 20:59 Brimonidine Tartrate 1 DROP BID OU Last administered on 05/04/25at 22:14; Start 05/04/25 at 21:00; Stop 06/03/25 at 20:59 Carvedilol 6.25 mg BID PO Last administered on 05/04/25at 19:49; Start 05/04/25 at 21:00; Stop 06/03/25 at 20:59 Famotidine 20 mg Q48H PO; Start 05/05/25 at 09:00; Stop 06/04/25 at 08:59 Home Med (Escitalopram Oxalate 10 MG) DAILY PO; Start 05/05/25 at 09:00; Stop 06/04/25 at 08:59 Miscellaneous Medication 175 mcg AM PO; Start 05/05/25 at 09:00; Stop 05/04/25 at 09:33; Status DC Home Med (Linaclotide (Linzess) 72 MCG) DAILY PO; Start 05/05/25 at 09:00; Stop 06/04/25 at 08:59 Losartan Potassium 50 mg DAILY PO; Start 05/05/25 at 09:00; Stop 06/04/25 at 08:59 Home Med (Tirzepatide (Mounjaro) 7.5 MG) QSU SQ; Start 05/10/25 at 09:00; Stop 06/09/25 at 08:59 Tranexamic Acid 1,000 mg STK-MED ONCE .ROUTE; Start 05/04/25 at 09:25; Stop 05/04/25 at 09:26; Status DC Levothyroxine Sodium 100 mcg SYN PO Last administered on 05/05/25at 05:49; Start 05/05/25 at 06:30; Stop 06/04/25 at 06:29 Levothyroxine Sodium 75 mcg SYN PO Last administered on 05/05/25at 05:49; Start 05/05/25 at 06:30; Stop 06/04/25 at 06:29 Acetaminophen/ Hydrocodone Bitart 1 tab Q4H PRN PO Last administered on 05/05/25at 06:04; Start 05/04/25 at 10:00; Stop 05/09/25 at 09:59 Acetaminophen/ Hydrocodone Bitart 2 tab Q4H PRN PO Last administered on 05/04/25at 13:47; Start 05/04/25 at 10:00; Stop 05/09/25 at 09:59 Fentanyl Citrate 100 mcg STK-MED ONCE .ROUTE; Start 05/04/25 at 09:39; Stop 05/04/25 at 09:39; Status DC Ephedrine Sulfate 50 mg STK-MED ONCE .ROUTE; Start 05/04/25 at 09:45; Stop 05/04/25 at 09:45; Status DC Rocuronium Almena 50 mg STK-MED ONCE .ROUTE; Start 05/04/25 at 09:51; Stop 05/04/25 at 09:51; Status DC Cefazolin Sodium 2 gm STK-MED ONCE IVPB Last administered on 05/04/25at 09:21; Start 05/04/25 at 09:21; Stop 05/04/25 at 10:01; Status DC Tranexamic Acid 1,000 mg STK-MED ONCE IV Last administered on 05/04/25at 09:25; Start 05/04/25 at 09:25; Stop 05/04/25 at 10:01; Status DC Tranexamic Acid 1,000 mg STK-MED ONCE IV Last administered on 05/04/25at 11:02; Start 05/04/25 at 11:02; Stop 05/04/25 at 11:03; Status DC Hydralazine HCl 20 mg STK-MED ONCE .ROUTE; Start 05/04/25 at 11:12; Stop 05/04/25 at 11:12; Status DC JUAN HONEYCUTT NP May 05, 2025 08:22
[2025-05-05] MEDS: FAMOTIDINE 20MG TAB PO SCH (08:30)
[2025-05-05] MEDS: ASPIRIN 325MG TAB PO SCH (08:30)
[2025-05-05] MEDS: (Escitalopram Oxalate 10 MG) PO SCH (09:00)
[2025-05-05] MEDS: (Linaclotide (Linzess) 72 MCG) PO SCH (09:00)
[2025-05-05] MEDS ORDERED: NON-FORMULARY MEDICATION 1 EACH (Levothyroxine Sodium (Levothyroxine) 175 MCG) PO SCH (09:00)
[2025-05-05 11:31] VITALS: BP 118/60; PULSE 57; RESP 16; TEMP 97.9
[2025-05-05] MEDS ORDERED: DOCU-116 PO (13:42)
[2025-05-05] MEDS ORDERED: HYDR-4060 PO (13:42)
--- NOTE | 2025-05-05 23:57 | PN ---
SUBJECTIVE: The patient is status post left shoulder surgery. OBJECTIVE: GENERAL: She is currently comfortable in bed, not in distress. VITAL SIGNS: In the chart. HEENT: Normocephalic, atraumatic. PERRLA. [place] and moist oral mucosa. NECK: Supple. No jugular venous dilation. No carotid bruit. No goiter. LUNGS: Clear to auscultation. HEART: S1, S2 are distant. ABDOMEN: Soft and nontender. EXTREMITIES: No clubbing or cyanosis. ASSESSMENT AND PLAN: * Status post right reverse shoulder arthroplasty. Continue DVT prophylaxis, GI prophylaxis, pulmonary prophylaxis, physical therapy as per Orthopedics. * Hypothyroidism. Continue levothyroxine. * Hypertension. Continue losartan. * COPD. Continue with nebulizations. * Follow up in a.m. Plan to discharge when cleared by Orthopedics. DOS:05/05/2025 TID: [id number] RECEIPT: [id number] MTDD
--- NOTE | 2025-05-09 09:04 | HMCIMG ---
Intraoperative fluoroscopic assessment of the right shoulder INDICATION: Right shoulder reverse arthroplasty COMPARISON: 7 radiographs dated 05/04/2025 Fluoroscopy time: 14 seconds. FINDINGS: 7 images demonstrate patient undergoing reverse arthroplasty of the right shoulder. IMPRESSION: details of the finding in the operative notes
[2025-05-10] MEDS ORDERED: TIRZEPATIDE 7.5 MG SQ SCH (09:00)
== END 2025-05-05 15:45 | disposition home health service (06) ==
LOC: DAH 06:10 → DAHIP 06:11 → 4AH 12:50
PROVIDERS: ADMIT Student in an Organized Health Care Education/Training Program; ATTEND Student in an Organized Health Care Education/Training Program
DX: M19.011 Primary osteoarthritis, right shoulder (principal); D62 Acute posthemorrhagic anemia; E03.9 Hypothyroidism, unspecified; I12.9 Hypertensive chronic kidney disease with stage 1 through stage 4 chronic kidney disease, or unspecified chronic kidney disease; N18.2 Chronic kidney disease, stage 2 (mild); J44.9 Chronic obstructive pulmonary disease, unspecified; F17.200 Nicotine dependence, unspecified, uncomplicated; G43.909 Migraine, unspecified, not intractable, without status migrainosus; E78.5 Hyperlipidemia, unspecified; G62.9 Polyneuropathy, unspecified; Z79.899 Other long term (current) drug therapy
CPT/HCPCS: 82040; 80048 ×2; 85025; 85610; 85730; 84134; 86140; 36415 ×2; 87641; 73020; 96365; 96366; 96375; 23472; 82948; 73030; 97161; 97116 ×3; 97530 ×5; 96376; 85027; G0378 ×30; A4223 ×2; A4600; C1776 ×4; C1713 ×4; A4663; J7030; J7120; J3010 ×2; J3490 ×7; J1100; J0330; J2003; J0360; J2704; J2405; J2710; J2795; J1885 ×3; J2371; J0690 ×4; A4649; A6254; A5120; A4215; A4213; A4222; A4221; A4216

== ENCOUNTER 2025-08-07 17:03 | Observation (INO) | payer OTHER, MEDICAID ==
[~2025-08-07] VITALS: Ht 149.9 cm; Wt 81.5 kg
[~2025-08-07 17:03] MED LIST changes: +DOCU-116 PO; +HYDR-4060 PO; -tramadol PO
--- NOTE | 2025-08-07 17:26 | ERN ---
ED Note History of Present Illness Stated Complaint: UTI Chief Complaint: Urinary Retention Time Seen by MD: 17:08 Time Seen by Midlevel: 17:08 Dictation: The patient is an 80-year-old female with a history of hypertension, right shoulder replacement, hyperlipidemia who presents to the emergency department with complaints of burning urination and suprapubic pain. Patient reports she has been dealing with a UTI over the last month and has had three different antibiotics with no relief. Patient reports fevers. Denies any nausea vomiting or diarrhea. Allergies: Coded Allergies: ANJANA Inhibitors (Verified Allergy, Unknown, 04/18/18) levofloxacin (Unverified Allergy, Unknown, RASH, 06/09/15) morphine (Unverified Allergy, Unknown, RASH, 06/09/15) Home Meds Active Scripts Docusate Sodium (Colace) 100 Mg Capsule, 1 CAP PO BID for 30 Days, #60 CAP 0 Refills Prov:JESSICA NGO MD 05/05/25 Hydrocodone/Acetaminophen (Hydrocodon-Acetaminophen 5-325) 5 Mg-325 Mg Tablet, 1-2 TAB PO Q6HPRN PRN for pain, #56 TAB 0 Refills Prov:JESSICA NGO MD 05/05/25 Reported Medications Telmisartan (Telmisartan) 80 Mg Tablet, 40 MG PO AM, TAB 04/30/25 Famotidine (Famotidine) 20 Mg Tablet, 20 MG PO AM, TAB 04/30/25 Ibuprofen (Ibuprofen) 600 Mg Tablet, 600 MG PO TID PRN for PAIN, TAB 04/30/25 Carvedilol (Carvedilol) 6.25 Mg Tablet, 6.25 MG PO BID, TAB 04/30/25 Brimonidine Tartrate (Brimonidine Tartrate) 0.2 % Drops, 1 DROP OU BID, DROP 04/30/25 Levothyroxine Sodium (Levothyroxine) 175 Mcg Capsule, 175 MCG PO AM, CAP 04/30/25 Tirzepatide (Mounjaro) 7.5 Mg/0.5 Ml Pen.injctr, 7.5 MG SQ sunday04/30/25 Aspirin (ASPIRIN 81 MG ECTAB) 81 Mg Ectab, 81 MG PO DAILY, TAB.EC 05/22/23 Escitalopram Oxalate (Escitalopram Oxalate) 10 Mg Tablet, 10 MG PO DAILY, TAB 05/22/23 Linaclotide (Linzess) 72 Mcg Capsule, 72 MCG PO DAILY, CAP 05/22/23 Atorvastatin Calcium (Atorvastatin Calcium) 10 Mg Tablet, 10 MG PO HS, TAB 08/22/16 Past Medical History Past Medical History: Anxiety, Arthritis, Depression, Diabetes-Type II, High Cholesterol, Heart Disease, Hypertension Additional Past Medical Hx: THYROID Surgical History: Hysterectomy, Unknown Surgical History Other: KNEES, NECK, EYES, INTESTINAL SURGERY Social History: Negative History: Not Applicable RN Note Reviewed/Agreed w/PFSH: Yes Review of System Dictation Constitutional: Negative for fever,chills, and weight loss Eyes: Negative for injury, pain,redness, and discharge ENT: Negative for injury,pain or swelling Cardiovascular: Negative for chest pain, palpitations, and edema Respiratory: Negative for shortness of breath, cough, and wheezing, Abdomen/GI: Negative for abdominal pain, nausea, vomiting, diarrhea, and consti pation Back: Negative for injury and pain : Positive for burning urination MS/Extremity: Negative for injury and deformity Skin: Negative for rash, and discoloration Neuro: Negative for headache, weakness, numbness, tingling, and seizure Psych: Negative for suicide ideation, homicidal ideation, and hallucinations Initial Vital Sign VS Vital Signs Date Time Temp Pulse Resp B/P (MAP) Pulse Ox O2 Delivery O2 Flow Rate FiO2 08/07/25 17:05 98.1 70 18 173/77 96 08/07/25 20:19 Room Air* 0 21 Physical Exam Dictation Vital Signs reviewed General Appearance: Alert, oriented x 3, no acute distress, well developed, nourished. Head and Face: non-traumatic. Eyes: PERRL, pink conjunctivas, eyelid no trauma, anterior chamber with arcus senilis. Ears: Pinnas intact and no signs of trauma or erythema ear canals clear and no discharge TM no erythema Nose: No discharge, no bleeding. Oropharynx: Mouth normal, tongue pink. pharynx clear,no erythema, tonsils no exudates, no abscesses noted, mucous membrane moist Neck: Supple, non-tender, no thyromegaly, no masses, no JVD, no bruits Breast:Deferred Chest:No tenderness, no crepitus, no paradoxical movement, no retractions Lungs:Clear, well-ventilated, symmetric, no rales, no wheezing, no rhonchi, no stridor, good breath sounds bilaterally Heart: Regular rate, regular rhythm, no murmur, no gallops Vascular: no peripheral edema, Abdomen: Soft, positive bowel sounds, nondistended, no guarding, nontender, no rebound, no masses no hepatomegaly, no splenomegaly, no Kilpatrick's sign, no hernias. Rectal: Deferred Genital: Deferred Neurological: Normal speech, motor function intact, sensory function intact Musculoskeletal: Neck nontender, full range of motion, back nontender, full range of motion, Extremities: nontender, full range of motion Skin: Color pink, dry, no turgor, no rash, no lacerations, no abrasions, no contusions. Lymphatic: Deferred Results (Laboratory/Radiology) Laboratory/Radiology Laboratory Tests Test 08/07/25 17:10 08/07/25 17:40 Urine Color LIGHT-YELLOW (YELLOW) Urine Appearance CLEAR (CLEAR) Urine pH 5.5 (5.0-8.0) Urine Specific [place] 1.024 (1.001-1.031) Urine Protein NEGATIVE mg/dL (NEGATIVE) Urine Glucose (UA) NEGATIVE mg/dL (NEGATIVE) Urine Ketones NEGATIVE mg/dL (NEGATIVE) Urine Occult Blood +- (TRACE) (NEGATIVE) H Urine Nitrate NEGATIVE (NEGATIVE) Urine Bilirubin NEGATIVE mg/dL (NEGATIVE) Urine Urobilinogen 0.2 mg/dL (0.2-1.0) Urine Leukocyte Esterase 75 Miriam/uL (NEGATIVE) H Urine RBC 2-5 /HPF (0-1) H Urine WBC 11-25 /HPF (0-1) H Urine Squamous Epithelial Cells RARE /HPF (0-2) Urine Bacteria None /HPF (None Seen) White Blood Count 9.2 K/uL (4.8-10.8) Red Blood Count 3.55 MIL/uL (4.00-5.50) L Hemoglobin 11.1 g/dL (12.0-16.0) L Hematocrit 33.7 % (36-48) L Mean Corpuscular Volume 94.9 fL (79-99) Mean Corpuscular Hemoglobin 31.3 pg (27.0-33.0) Mean Corpuscular Hemoglobin Concent 32.9 g/dL (32.0-36.0) Red Cell Distribution Width 14.4 % (11.0-15.5) Platelet Count 351 K/uL (130-400) Mean Platelet Volume 10.4 fL (7.5-10.5) Immature Granulocyte % (Auto) 0.3 % (0-1) Neutrophils (%) (Auto) 63.8 % (40.0-77.0) Lymphocytes (%) (Auto) 25.5 % (21.0-51.0) Monocytes (%) (Auto) 5.9 % (3.0-13.0) Eosinophils (%) (Auto) 4.0 % (0.0-8.0) Basophils (%) (Auto) 0.5 % (0.0-5.0) Neutrophils # (Auto) 5.8 K/uL (1.8-7.7) Lymphocytes # (Auto) 2.3 K/uL (1.0-4.8) Monocytes # (Auto) 0.5 K/uL (0.1-1.0) Eosinophils # (Auto) 0.37 K/uL (0.00-0.70) Basophils # (Auto) 0.05 K/uL (0.00-0.20) Absolute Immature Granulocyte (auto 0.03 K/uL (0-1) Nucleated Red Blood Cells 0.0 % (0.0-0.19) Sodium Level 143 mmol/L (136-145) Potassium Level 3.8 mmol/L (3.5-5.1) Chloride Level 108 mmol/L (101-111) Carbon Dioxide Level 27 mmol/L (21-32) Blood Urea Nitrogen 27 mg/dL (7-18) H Creatinine 0.8 mg/dL (0.5-1.0) Glomerular Filtration Rate Calc 74 mL/min (>90) Random Glucose 90 mg/dL (70-105) Total Calcium 8.7 mg/dL (8.5-10.1) ORDERING PHYSICIAN: NEISHA LUNA PROCEDURE: ABD PEL WO - CT ABDOMEN/PELVIS W/O CONTRAST EXAM: CT ABDOMEN AND PELVIS WITHOUT IV CONTRAST. TECHNIQUE: MDCT sections of the abdomen and pelvis were obtained without administration of intravenous contrast. CLINICAL INDICATIONS: Patient presents with lower abdominal pain. PRIOR IMAGING: None provided. FINDINGS: LUNG BASES: Bibasilar atelectasis with elevation of the right hemidiaphragm. Linear fibrotic band in mild changes of bronchiectasis in the bilateral lower lobes. Mitral valvular calcification. Normal cardiac size. Scattered coronary artery calcifications. LIVER: Diffuse hepatic steatosis with rounded hepatic margins. A 0.2 cm calcified granuloma in segment V. GALLBLADDER AND BILE DUCTS: Gallbladder surgically absent. No biliary ductal dilatation. PANCREAS: Normal in size and contour. SPLEEN: Normal. ADRENAL GLANDS: Normal. KIDNEYS, URETERS, AND BLADDER: Few non-obstructing calculi in the left kidney, the largest measuring 0.6 cm in the lower pole. No hydronephrosis or hydroureter. The urinary bladder is suboptimally distended. STOMACH AND BOWEL: Small hiatus hernia. Postprocedural changes in the sigmoid colon. Mild fecal loading of the colon. Scattered diverticulosis of the ascending and transverse colon. Postsurgical changes in the rectosigmoid junction. No concentric bowel wall thickening. Subtle chronic inflammatory wall thickening involving the distal ascending colon and the region of the hepatic flexure of the colon with increased submucosal fat. No perforation or loculated collection. APPENDIX: Normal. PERITONEUM: No free intraperitoneal air or significant free fluid. LYMPH NODES: No significant abdominal or pelvic lymphadenopathy. REPRODUCTIVE ORGANS: Post-hysterectomy status. VASCULATURE: Atheromatous wall calcifications of the aorta and iliac arteries. No aneurysmal dilatation. BONES: Multilevel moderate spondylosis. No acute osseous abnormality. OTHER FINDINGS: 3.0 cm fat-containing umbilical hernia and 1.8 cm fat-containing left paraumbilical ventral hernia. Few bilateral pelvic phleboliths. IMPRESSION: Small hiatus hernia. Mild fecal loading of the colon. Scattered diverticulosis of the ascending and transverse colon. Postsurgical changes in the rectosigmoid junction. No concentric bowel wall thickening. Subtle chronic inflammatory wall thickening involving the distal ascending colon and the region of the hepatic flexure of the colon with increased submucosal fat. Diffuse hepatic steatosis with rounded margins and a small calcified granuloma in segment V, likely representing chronic liver disease. Post-cholecystectomy and post-hysterectomy status. Few non-obstructing left renal calculi. 3.0 cm fat-containing umbilical hernia and 1.8 cm fat-containing left paraumbilical ventral hernia. /[facility] Labs Reviewed?: Yes ED Course ED Course Orders Procedure Category Date Status Time Cbc With Differential LAB 08/07/25 Complete 17:13 Urinalysis Profile LAB 08/07/25 Complete 17:13 Basic Metabolic Panel LAB 08/07/25 Complete 17:13 Culture Urine SAMMY 08/07/25 In Process 17:39 Ceftriaxone 1g Vial PHA 08/07/25 Complete (Rocephine 1g Inj) 18:30 Ct Abdomen/Pelvis W/O CT 08/07/25 Resulted Contrast 19:54 Admit Orders ADM 08/07/25 Transmitted 21:40 Condition: CPOE 08/07/25 Transmitted 21:42 Vital Signs Every 4 CPOE 08/07/25 Transmitted Hours 21:42 0.9%Nacl 1000ml (Ns PHA 08/07/25 In Process 1000ml) 22:00 Blood Cult SAMMY 08/07/25 In Process 21:42 Vancomycin 1g/250ml PHA 08/07/25 Complete Kit (Vancomycin 1g/2 22:00 Vancomycin Protocol PHA 08/07/25 In Process (Vancomycin Protocol 22:00 Zosyn 3.375gm+Ns 50ml PHA 08/07/25 In Process (Zosyn 3.375gm+Ns 22:00 Cbc With Differential LAB 08/08/25 Verified 04:00 Basic Metabolic Panel LAB 08/08/25 Verified 04:00 Consistent Carb DIET 08/08/25 Transmitted Breakfast Initiate IRAIS 08/07/25 In Process Hyperglycemia Protoco 21:52 Insulin Regular, PHA 08/08/25 In Process Human 3ml (Humulin R 07:30 *Nursing CPOE 08/07/25 Transmitted Communication: 21:52 Vancomycin 1.5 Gm/250 PHA 08/07/25 In Process Ml Bag (Vancomycin 22:00 Edm Admit Bridge Order ADM 08/07/25 Transmitted 22:03 Vancomycin 1g/250ml PHA 08/08/25 In Process Kit (Vancomycin 1g/2 22:00 Vancomycin Trough LAB 08/10/25 Verified 21:00 Current Medications Medications (Trade) Dose Ordered Sig/[place] Route PRN Reason Start Time Stop Time Status Last Admin Dose Admin Ceftriaxone Sodium (ROCEphine 1G INJ) 1 gm ONCE ONCE IVPB 08/07/25 18:30 08/07/25 18:31 DC 08/07/25 19:47 Vital Signs Date Time Temp Pulse Resp B/P (MAP) Pulse Ox O2 Delivery O2 Flow Rate FiO2 08/07/25 20:19 66 18 152/54 95 Room Air* 0 21 08/07/25 17:05 98.1 70 18 173/77 96 Medical Decision Making [facility] MDM: The patient is an 80-year-old female with a history of hypertension, right shoulder replacement, hyperlipidemia who presents to the emergency department with complaints of burning urination and suprapubic pain. Patient reports she has been dealing with a UTI over the last month and has had three different antibiotics with no relief. Patient reports fevers. Denies any nausea vomiting or diarrhea. Urinalysis positive for leukocyte esterase and WBCs. Patient is symptomatic. CT abdomen showed nonobstructed kidney stones. Given patient with multiple use of antibiotics with no relief we will admit for further evaluation and treatment. Differential diagnosis: UTI, sepsis, pyelonephritis, dehydration Comorbidities: Hypertension, hyperlipidemia, right shoulder replacement, anxiety Tests considered and not ordered secondary to shared decision making include: none Previous outside records reviewed: none Risk of complication and/or morbidity or mortality of patient management: The patient meets criteria for admission. Need for emergency major/minor surgery: No There are no social concerns with this patient. I independently interpreted the tests I ordered (labs, urinalysis, etc.). I discussed the case with the hospitalist for admission. who accepts admission I discussed the case with the following specialists: none. Historian: pateint. I independently interpreted imaging studies and EKGs that I ordered (US, CT, XR, EKG, etc.). External chart review: none. Medical management and examination interpretation discussions were had by me with other qualified healthcare professionals as indicated for the patient's care. DX & DISP Disposition: Inpatient Decision to Admit Date: Aug 07, 2025 Decision to Admit Time: 21:40 Departure Impression: Primary Impression: UTI (urinary tract infection) Additional Impressions: Failure of outpatient treatment, Kidney stones Condition: Stable Referrals: DANA WOMACK MD (PCP) I have reviewed the case, and I agree with NEISHA LUNA Aug 07, 2025 17:26
[2025-08-07 17:30] LABS: APPEARANCE,URINE CLEAR (CLEAR); GLUCOSE, URINE (UA) NEGATIVE (NEGATIVE); LEUKOCYTE ESTERASE ,URINE 75 Leu/uL (NEGATIVE); NITRATE,URINE NEGATIVE (NEGATIVE); OCCULT BLOOD,URINE +- (TRACE) (NEGATIVE)
[2025-08-07 17:38] LABS: ADD UA MICROSCOPIC YES
[2025-08-07 17:42] LABS: SQUAMOUS EPITHELIAL CELL,UR RARE /HPF (0-2)
[2025-08-07 17:50] LABS: IMMATURE GRANULOCYTE ABSOLUTE 0.03 K/uL (0-1); NUCLEATED RED BLOOD CELLS 0.0 % (0.0-0.19); PLATELET COUNT (AUTO) 351 K/uL (130-400); RED BLOOD CELL COUNT(AUTO) 3.55 MIL/uL (4.00-5.50); RED CELL DISTRIBUTION WIDTH 14.4 % (11.0-15.5); WHITE BLOOD COUNT (AUTO) 9.2 K/uL (4.8-10.8)
[2025-08-07 17:58] LABS: CREATININE 0.8 mg/dL (0.5-1.0); GLOMERULAR FILTR. RATE CALC 74.0 mL/min (>90); GLUCOSE,RANDOM 90.0 mg/dL (70-105); SODIUM SERUM 143.0 mmol/L (136-145); UREA NITROGEN, BLOOD 27.0 mg/dL (7-18)
[2025-08-07] MEDS ORDERED: VANCOMYCIN PROTOCOL PER PHARMACY IV SCH (22:00)
[2025-08-07] MEDS ORDERED: VANCOMYCIN KIT 1 GM/250 ML IV.KIT IV ONE (22:00)
--- NOTE | 2025-08-07 22:42 | HMCIMG ---
EXAM: CT ABDOMEN AND PELVIS WITHOUT IV CONTRAST. TECHNIQUE: MDCT sections of the abdomen and pelvis were obtained without administration of intravenous contrast. CLINICAL INDICATIONS: Patient presents with lower abdominal pain. PRIOR IMAGING: None provided. FINDINGS: LUNG BASES: Bibasilar atelectasis with elevation of the right hemidiaphragm. Linear fibrotic band in mild changes of bronchiectasis in the bilateral lower lobes. Mitral valvular calcification. Normal cardiac size. Scattered coronary artery calcifications. LIVER: Diffuse hepatic steatosis with rounded hepatic margins. A 0.2 cm calcified granuloma in segment V. GALLBLADDER AND BILE DUCTS: Gallbladder surgically absent. No biliary ductal dilatation. PANCREAS: Normal in size and contour. SPLEEN: Normal. ADRENAL GLANDS: Normal. KIDNEYS, URETERS, AND BLADDER: Few non-obstructing calculi in the left kidney, the largest measuring 0.6 cm in the lower pole. No hydronephrosis or hydroureter. The urinary bladder is suboptimally distended. STOMACH AND BOWEL: Small hiatus hernia. Postprocedural changes in the sigmoid colon. Mild fecal loading of the colon. Scattered diverticulosis of the ascending and transverse colon. Postsurgical changes in the rectosigmoid junction. No concentric bowel wall thickening. Subtle chronic inflammatory wall thickening involving the distal ascending colon and the region of the hepatic flexure of the colon with increased submucosal fat. No perforation or loculated collection. APPENDIX: Normal. PERITONEUM: No free intraperitoneal air or significant free fluid. LYMPH NODES: No significant abdominal or pelvic lymphadenopathy. REPRODUCTIVE ORGANS: Post-hysterectomy status. VASCULATURE: Atheromatous wall calcifications of the aorta and iliac arteries. No aneurysmal dilatation. BONES: Multilevel moderate spondylosis. No acute osseous abnormality. OTHER FINDINGS: 3.0 cm fat-containing umbilical hernia and 1.8 cm fat-containing left paraumbilical ventral hernia. Few bilateral pelvic phleboliths. IMPRESSION: Small hiatus hernia. Mild fecal loading of the colon. Scattered diverticulosis of the ascending and transverse colon. Postsurgical changes in the rectosigmoid junction. No concentric bowel wall thickening. Subtle chronic inflammatory wall thickening involving the distal ascending colon and the region of the hepatic flexure of the colon with increased submucosal fat. Diffuse hepatic steatosis with rounded margins and a small calcified granuloma in segment V, likely representing chronic liver disease. Post-cholecystectomy and post-hysterectomy status. Few non-obstructing left renal calculi. 3.0 cm fat-containing umbilical hernia and 1.8 cm fat-containing left paraumbilical ventral hernia. /[place]
[2025-08-07] MEDS: ZOSYN 3.375GM +NS 50ML IV SCH (23:17)
[2025-08-07] MEDS: 0.9%NACL 1000ML 1,000 ML IV SCH (23:17)
[2025-08-07] MEDS ORDERED: LEVO75CA6 PO (23:44)
[2025-08-08] VITALS (8 sets, daily range): BP systolic 135–163; BP diastolic 52–80; PULSE 60–63; RESP 16–20; TEMP 97.4–98; O2SAT 96–99
--- NOTE | 2025-08-08 | NUR ---
ADMISSION NOTE PATIENT ADMISSION AT 08/07/25 AT 2355. RECEIVED REPORT FROM CELI FARMER. PATIENT ORIENTED, AMBULATORY, AND ABLE TO MAKE NEEDS KNOWN. PATIENT ASSESSED, CONNECTED TO IVF. PATIENT SETTLED IN BED, GIVEN CALL LIGHT, TAUGHT TO USE.
[2025-08-08] MEDS: VANCOMYCIN 1.5 GM/250 ML BAG 250 ML IV ONE ×2 (00:15→00:18)
[2025-08-08] MEDS ORDERED: TELM80TA10 PO (01:18)
[2025-08-08] MEDS ORDERED: LEVO150C5 PO (01:20)
[2025-08-08] MEDS ORDERED: LINA290C PO (01:26)
[2025-08-08 06:00] LABS: IMMATURE GRANULOCYTE ABSOLUTE 0.02 K/uL (0-1); NUCLEATED RED BLOOD CELLS 0.0 % (0.0-0.19); PLATELET COUNT (AUTO) 321 K/uL (130-400); RED BLOOD CELL COUNT(AUTO) 3.64 MIL/uL (4.00-5.50); RED CELL DISTRIBUTION WIDTH 14.2 % (11.0-15.5); WHITE BLOOD COUNT (AUTO) 10.1 K/uL (4.8-10.8)
[2025-08-08 06:08] LABS: CREATININE 0.9 mg/dL (0.5-1.0); GLOMERULAR FILTR. RATE CALC 64.0 mL/min (>90); GLUCOSE,RANDOM 84.0 mg/dL (70-105); SODIUM SERUM 143.0 mmol/L (136-145); UREA NITROGEN, BLOOD 24.0 mg/dL (7-18)
[2025-08-08] MEDS: HOME MEDICATION 1 EACH PO SCH (08:05)
[2025-08-08] MEDS: ASPIRIN 81 MG EC TAB PO SCH (08:05)
[2025-08-08] MEDS: BRIMONIDINE TARTRATE 0.2% 5 ML BOTTLE OU SCH (10:32)
--- NOTE | 2025-08-08 17:22 | NUR ---
DCP: INITIAL ASSESSMENT Patient lives with spouse, Mil Cano. She has no home health but does have PHC with [facility] 1/2 hours a week. Patient has cane, wheelchair, rollator, and glucometer at home. She states she uses no insulin. Patient needs help with ADLs and does not drive. Family assists as needed. PCP is Dr. Mil Meyer. Pharmacy is [facility]. Patient voiced no safety concerns regarding returning home and states she has no difficulty with housing or buying food. DCP is home. Addendum: 08/08/25 at 1725 by JUNE CHARLES Amended: Links added.
[2025-08-08] MEDS: VANCOMYCIN 1G/250ML KIT 250 ML IV SCH (21:22)
[2025-08-09] VITALS (8 sets, daily range): BP systolic 98–137; BP diastolic 43–57; PULSE 60–66; RESP 16–19; TEMP 97.4–98; O2SAT 95–96
--- NOTE | 2025-08-09 02:00 | PN ---
SUBJECTIVE: The patient denies any chest pain or shortness of breath. The patient has lower abdominal pain. The patient is getting antibiotics for urine tract infection. OBJECTIVE: VITAL SIGNS: Blood pressure is 130/60, pulse 60, respirations 14. LUNGS: Mostly decreased breath sounds. No wheezing or rhonchi. HEART: Regular rate and rhythm. ABDOMEN: Soft and nontender. ASSESSMENT AND PLAN: * Diagnosed with 3 cm umbilical hernia. Abdominal pain stable. Nausea is stable. * Urinary tract infection. The patient is on antibiotics. Continue the patient's antibiotics. * Diabetes mellitus and hypertension, stable. TID: [id number] RECEIPT: [id number] cc:
[2025-08-09 04:10] LABS: NUCLEATED RED BLOOD CELLS 0.0 % (0.0-0.19); PLATELET COUNT (AUTO) 276.0 K/uL (130-400); RED BLOOD CELL COUNT(AUTO) 3.14 MIL/uL (4.00-5.50); RED CELL DISTRIBUTION WIDTH 14.3 % (11.0-15.5); WHITE BLOOD COUNT (AUTO) 7.9 K/uL (4.8-10.8)
[2025-08-09 04:46] LABS: CREATININE 0.8 mg/dL (0.5-1.0); GLOMERULAR FILTR. RATE CALC 74.0 mL/min (>90); GLUCOSE,RANDOM 86.0 mg/dL (70-105); SODIUM SERUM 142.0 mmol/L (136-145); UREA NITROGEN, BLOOD 21.0 mg/dL (7-18)
--- NOTE | 2025-08-09 07:16 | HP ---
ADMITTING HISTORY AND PHYSICAL CHIEF COMPLAINT: Recurrent urinary tract infection, failed outpatient treatment, abdominal pain. HISTORY OF PRESENTING ILLNESS: This is an 80-year-old female with a history of recurrent urinary tract infection. The patient failed three outpatient treatments in the last one month. The patient also has lower abdominal pain. At this time, the patient has some nausea with no vomiting at this time. The patient denies any fever or chills. The patient was hospitalized with above. PAST MEDICAL HISTORY: Significant for, * Recurrent urinary tract infections. * Gastritis. * Gastroesophageal reflux disease. * Hypertension. * Hypothyroidism. * Hyperlipidemia. * Anxiety. * Arthritis. * Diabetes mellitus. * Heart disease. PAST SURGICAL HISTORY: Significant for hysterectomy. MEDICATIONS: The patient takes, * Telmisartan 80 mg. * Famotidine. * Ibuprofen. * Carvedilol. * Levothyroxine. * Aspirin. * Celexa. * Linzess. * Atorvastatin. ALLERGIES: * ANJANA INHIBITOR. * LEVOFLOXACIN. * MORPHINE ALLERGY. SOCIAL HISTORY: She lives with family members. Denies any history of smoking or alcohol substances. FAMILY HISTORY: Noncontributory. REVIEW OF SYSTEMS: HEENT: Negative. CARDIOVASCULAR: Denies chest pain. RESPIRATORY: Denies any shortness of breath. GASTROINTESTINAL: Abdominal pain present and nausea and vomiting present. GENITOURINARY: Urinary discomfort and urinary retention. PHYSICAL EXAMINATION: GENERAL: The patient is awake, alert, oriented to person, place and time. HEENT: Pupils are equal. Mucous membranes appears to be dry. NECK: Neck is supple. LUNGS: Mostly decreased breath sounds. HEART: Regular rate and rhythm. ABDOMEN: Abdomen is soft and nontender. NEUROLOGIC: No focal deficits noted. ASSESSMENT AND PLAN: * Urinary tract infection and lower abdominal pain. The patient has urine cultures and blood cultures done. The patient is on vancomycin and Zosyn. * Hypertension. The patient's blood pressure is elevated at 173/77. The patient is going to get labetalol p.r.n. Continue with home medications. The patient is going to get IV fluids. * Diabetes mellitus. Monitor closely. * Hypertension, stable. TID: [id number] RECEIPT: [id number]
[2025-08-09] MEDS: LACTULOSE 20 GM/30 ML UDCUP PO PRN (16:47)
[2025-08-09] MEDS ORDERED: MAGNESIUM 2GM PREMIX 50ML 50 ML IV PRN (19:30)
[2025-08-10] VITALS: BP 125/57; PULSE 65; RESP 17; TEMP 97.8
--- NOTE | 2025-08-10 02:32 | PN ---
SUBJECTIVE: The patient is still complaining of lower abdominal pain and the patient is getting antibiotics for urinary tract infection, so her cultures are negative. OBJECTIVE: VITAL SIGNS: Blood pressure is 112/45, pulse 63, respirations 16. LUNGS: Mostly decreased breath sounds. No wheezes or rhonchi. HEART: Regular. ABDOMEN: Soft, nontender. LABORATORY DATA: Significant WBC is 7.9, hemoglobin 9.8, potassium 3.6, magnesium 1.8. Urine cultures are less than 10,000 units. ASSESSMENT AND PLAN: Abdominal pain, umbilical hernia, urinary tract infection. The patient is on antibiotics, nausea, vomiting. The patient is on Zofran. Hypokalemia is stable. The patient's care will be transferred to Dr. Meyer. TID: [id number] RECEIPT: [id number]
[2025-08-10 04:00] VITALS: BP 135/86; PULSE 65; RESP 20; TEMP 98.2
[2025-08-10 07:58] VITALS: BP 147/63; PULSE 67; RESP 16; TEMP 97.7
[2025-08-10 08:00] VITALS: O2SAT 99
[2025-08-10 08:51] VITALS: BP 147/63
[2025-08-10] MEDS: PoTASSium chloRIDE 20MEQ ER 20 MEQ ERTAB PO PRN (08:51)
[2025-08-10] MEDS ORDERED: PoTASSium chl 10% ELIXIR 20MEQ 20 MEQ/15 ML UDCUP PO PRN (09:00)
--- NOTE | 2025-08-10 10:59 | NUR ---
PATIENT IS DISCHARGED. 2 IVS TAKEN OUT WITH CATHETER INTACT. EDUCATION PROVIDED TO PATIENT WELL FOLLOW UP APPOINTMENT MADE. PATIENT WILL BE TAKEN OUT BY RESTAURANT INSPECTOR.
== END 2025-08-10 11:10 | disposition home or self-care (01) ==
LOC: EDH 17:03 → EDHIP 21:40 → 1MS 23:55
PROVIDERS: ADMIT Internal Medicine; ATTEND Internal Medicine
DX: N39.0 Urinary tract infection, site not specified (principal); E11.9 Type 2 diabetes mellitus without complications; E78.00 Pure hypercholesterolemia, unspecified; I10 Essential (primary) hypertension; E87.6 Hypokalemia; E03.9 Hypothyroidism, unspecified; K21.9 Gastro-esophageal reflux disease without esophagitis; F41.9 Anxiety disorder, unspecified; F32.A Depression, unspecified; M19.90 Unspecified osteoarthritis, unspecified site; K29.70 Gastritis, unspecified, without bleeding; K76.0 Fatty (change of) liver, not elsewhere classified; Z90.710 Acquired absence of both cervix and uterus; Z88.5 Allergy status to narcotic agent; Z96.611 Presence of right artificial shoulder joint; Z79.899 Other long term (current) drug therapy; Z98.890 Other specified postprocedural states
CPT/HCPCS: 96365; 96366 ×4; 99285; 80048 ×3; 85025 ×2; 87040 ×2; 87086; 81001; 36415 ×3; 74176; 96376 ×2; 96361 ×2; 96375 ×2; 96367; 96368; 82948 ×5; 83735; 85027; G0378 ×61; J7030 ×2; J0696; J2543 ×8; J3375 ×2; J3373 ×2; J1171 ×4; J2405 ×2